=== PATIENT | female | born 1985 | race Caucasian/White ===

== ENCOUNTER 2016-10-06 03:57 | Inpatient (IN) | payer BC ==
[~2016-10-06] VITALS: Ht 160 cm; Wt 72.6 kg
[2016-10-06] MEDS ORDERED: PRENTAB26 PO (04:35)
[2016-10-06 04:36] VITALS: Ht 160 cm; Wt 72.6 kg
[2016-10-06] MEDS ORDERED: LACTATED RINGER'S 1000ML 1,000 ML IV PRN (09:37)
[2016-10-06] MEDS ORDERED: LACTATED RINGER'S 1000ML 1,000 ML IV SCH (09:37)
[2016-10-06 10:32] LABS: HEMATOCRIT 37.8 % (37-47); MEAN CORPUSCULAR HEMOGLOBIN 31.4 pg (25-34); MEAN CORPUSCULAR HGB CONC 34.1 g/dl (32-36); MEAN PLATELET VOLUME 10.5 fL (7.4-10.4); PLATELET COUNT 214 K/uL (130-400); RED BLOOD COUNT 4.11 M/uL (4.2-5.4); WHITE BLOOD COUNT 14.45 K/uL (4.8-10.8)
[2016-10-06] MEDS ORDERED: BUPIVACAINE 0.25% 30 ML VIAL ONE (12:41)
[2016-10-06] MEDS ORDERED: EpHEDrine SULFATE INJ 50 MG/ML AMP ONE (12:41)
[2016-10-06] MEDS ORDERED: FENTANYL 2MCG/ML ROPIV 1.25MG/ML 100ML BAG EPI ONE (12:42)
[2016-10-06] MEDS ORDERED: FENTANYL CITRATE INJ 50 MCG/1 ML 2 ML VIAL ONE (12:42)
[2016-10-06] MEDS ORDERED: LACTATED RINGER'S 1000ML 500 ML IV PRN (13:05)
[2016-10-06] MEDS ORDERED: EpHEDrine SULFATE INJ 50 MG/ML AMP IV PRN (13:15)
[2016-10-06] MEDS ORDERED: NALOXONE HCL INJ 0.4 MG/1 ML VIAL/CARP IV PRN (13:15)
[2016-10-06] MEDS ORDERED: FENTANYL 2MCG/ML ROPIV 1.25MG/ML 100ML BAG EPI PRN (13:15)
[2016-10-06] MEDS ORDERED: OXYTOCIN 30 UNITS/500ML NSS IV ONE (16:00)
[2016-10-06] MEDS ORDERED: MEASLES, MUMPS & RUBELLA VIRUS VIAL SQ. ONE (16:45)
[2016-10-06] MEDS ORDERED: HYDROCORTISONE ACETATE 25 MG SUPP PR PRN (16:45)
[2016-10-06] MEDS ORDERED: SUPERCREAM 0.870 % 15GM JAR EXT PRN (16:45)
[2016-10-06] MEDS ORDERED: OXYCODONE/ACETAMINOPHEN 5-325 TAB PO PRN (16:45)
[2016-10-06] MEDS ORDERED: DIPHTHERIA/TETANUS/PERTUSSIS 0.5 ML SYR/VIAL IM. ONE (16:45)
[2016-10-06] MEDS ORDERED: BENZOCAINE 20% AER SPR 82.5 GM CAN EXT PRN (16:45)
[2016-10-06] MEDS ORDERED: OXYTOCIN 30 UNITS/500ML NSS IV PRN (16:45)
[2016-10-06] MEDS ORDERED: ACETAMINOPHEN 325 MG TAB PO PRN (16:45)
[2016-10-06] MEDS ORDERED: LANOLIN OINT EXT PRN ×2 (16:45)
--- NOTE | 2016-10-06 17:31 | Anesthesia Procedure Note ---
Anesthesia Epidural Removal Nt Date & Time Oct 06, 2016 at 17:30 Vital Signs Pain Intensity: 0.0 Notes Mental Status: alert / awake / arousable, participated in evaluation Nausea / Vomiting: adequately controlled Pain: adequately controlled Airway Patency, RR, SpO2: stable & adequate BP & HR: stable & adequate Hydration State: stable & adequate Neuraxial Anesthesia: was administered Anesthetic Complications: no major complications apparent, pt satisfied with anesthetic care Epidural: removed without complications, with tip intact
--- NOTE | 2016-10-06 18:02 | DELIVERY SUMMARY ---
DATE OF OPERATION: 10/06/2016 DATE OF DELIVERY: 10/06/2016. TIME OF DELIVERY OF BABY: 1605 p.m. TIME OF DELIVERY OF PLACENTA: 1625 p.m. DETAILS OF DELIVERY: The patient was found to be fully dilated and desired to push. She pushed for about half an hour and delivered the head without difficulty. There was a nuchal cord around the neck x1 and shoulders were delivered with minimal traction and the nuchal cord was reduced while delivering the body. Baby was handed off to the mother where mouth and nose were suctioned. Cord was clamped x2 and cut at 1 min. It was a 3-vessel cord. Then baby was handed to the waiting pediatric team. Then the vagina and perineum were checked for lacerations. There were first degree labial lacerations bilaterally and the left one was close to the urethral opening. A Gilbert catheter was placed in the urethra during repair of labial lacerations and they were repaired with 3-0 Vicryl on an SH needle in a running fashion. Excellent hemostasis was achieved. Then, there was a small second degree perineal laceration at the posterior fourchette, which was repaired with 2-0 Vicryl in a running fashion. Excellent hemostasis was achieved. The rest of the vagina was intact. The placenta was found to be in the vagina, delivered spontaneously as intact and complete. Uterus was explored and found to be empty. Lower segment was cleared of all clots and debris. EBL was 200 and fundus was firm. Mother and baby tolerated the procedure well. Baby was a viable male , Apgars 8/9 and weight is 3396 gr. No complications happened and I was present during whole procedure. I attest to the content of the Intraoperative Record and any orders documented therein. Any exceptions are noted below. [facility]
[2016-10-06 19:20] VITALS: BP 106/58; PULSE 90; TEMP 36.9
[2016-10-06] MEDS: DOCUSATE SODIUM 100 MG CAP PO SCH (20:00)
[2016-10-06] MEDS: IBUPROFEN 600 MG TAB PO PRN (21:15)
[2016-10-07] VITALS: BP 109/63; PULSE 63; TEMP 36.7
[2016-10-07] MEDS: IBUPROFEN 600 MG TAB PO PRN ×2 (03:43→09:58)
[2016-10-07 04:30] VITALS: BP 112/64; PULSE 74; TEMP 36.8
[2016-10-07 07:29] LABS: HEMATOCRIT 30.4 % (37-47)
[2016-10-07 08:00] VITALS: BP 112/67; PULSE 54; TEMP 36.5
[2016-10-07] MEDS: FERROUS SULFATE 325 MG TAB PO SCH (08:32)
[2016-10-07] MEDS: PRENATAL VITAMIN TAB PO SCH (08:33)
[2016-10-07] MEDS: DOCUSATE SODIUM 100 MG CAP PO SCH ×2 (08:33→19:50)
--- NOTE | 2016-10-07 10:17 | OB/GYN Progress Note ---
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 Subjective conversation w/ patient, physical exam Ambulation: ambulating normally Voiding: no voiding problems Passing Gas: Yes Diet Tolerance: Regular Diet Lochia: Moderate Feeding Type: Breast Feeding Review of Systems Constitutional: No chills, No fatigue, No fever, No problem reported, No sweats , No weakness, No weight loss Respiratory: No cough, No dyspnea at rest, No dyspnea on exertion, No hemoptysis, No problem reported, No shortness of breath, No sputum, No wheezing Cardiac: No PND, No chest pain, No claudication, No edema, No orthopnea, No palpitations, No problem reported Breast: + breast lump, + breast pain, + change in shape, + nipple discharge, + problem reported, + see HPI Abdomen: No GI bleeding, No constipation, No diarrhea, No nausea, No pain, No problem reported, No vomiting Female : No abnormal vaginal bleeding, No dysuria, No hematuria, No incontinence, No problem reported, No see HPI, No urinary frequency, No vaginal discharge Objective Vital Signs Date Time Temp Pulse Resp B/P Pulse Ox O2 Delivery O2 Flow Rate FiO2 10/07/16 08:00 36.5 54 18 112/67 Room Air 10/07/16 04:30 36.8 74 16 112/64 Room Air 10/07/16 00:00 Room Air 10/07/16 00:00 36.7 63 16 109/63 10/06/16 19:20 36.9 90 16 106/58 10/06/16 19:20 Room Air Physical Exam General Appearance: WELL-APPEARING, WD/WN, NO APPARENT DISTRESS Respiratory/Chest: chest non-tender, lungs clear, normal breath sounds, no respiratory distress, no accessory muscle use Cardiovascular: regular rate, rhythm, no edema, no gallop, no JVD, no murmur Abdomen: normal bowel sounds, non tender, soft, no organomegaly, no pulsatile mass Fundus: Firm Incision Description: Clean, Dry & Intact Extremities: normal range of motion, non-tender, normal inspection, no pedal edema, no calf tenderness Laboratory Results Last 24 Hours Test 10/06/16 10:14 10/07/16 06:40 White Blood Count 14.45 K/uL Red Blood Count 4.11 M/uL Hemoglobin 12.9 g/dL 10.2 g/dL Hematocrit 37.8 % 30.4 % Mean Corpuscular Volume 92.0 fL Mean Corpuscular Hemoglobin 31.4 pg Mean Corpuscular Hemoglobin Concent 34.1 g/dl RDW Standard Deviation 41.8 fL RDW Coefficient of Variation 12.3 % Platelet Count 214 K/uL Mean Platelet Volume 10.5 fL Assessment and Plan Day Number: 1 Continue Routine Care: Anticipate disch tomorrow
[2016-10-07 11:51] VITALS: BP 108/68; PULSE 66; TEMP 36.4; O2SAT 97
[2016-10-07 16:30] VITALS: BP 110/61; PULSE 61; TEMP 36.4
[2016-10-07] MEDS ORDERED: BISACODYL 5 MG TABEC PO SCH (20:00)
[2016-10-07 23:50] VITALS: BP 106/67; PULSE 65; TEMP 36.7; O2SAT 100
[2016-10-08] MEDS: IBUPROFEN 600 MG TAB PO PRN (05:07)
[2016-10-08 06:10] LABS: HEMATOCRIT 31.1 % (37-47); MEAN CELL VOLUME 92.8 fL (80-100); MEAN CORPUSCULAR HGB CONC 33.4 g/dl (32-36); MEAN PLATELET VOLUME 10.7 fL (7.4-10.4); PLATELET COUNT 187 K/uL (130-400); RED BLOOD COUNT 3.35 M/uL (4.2-5.4); WHITE BLOOD COUNT 12.61 K/uL (4.8-10.8)
[2016-10-08] MEDS ORDERED: BISACODYL 10 MG SUPP PR PRN (07:00)
[2016-10-08] MEDS: DOCUSATE SODIUM 100 MG CAP PO SCH (07:55)
[2016-10-08] MEDS: FERROUS SULFATE 325 MG TAB PO SCH (07:56)
[2016-10-08] MEDS: PRENATAL VITAMIN TAB PO SCH (07:56)
[2016-10-08 08:00] VITALS: BP 104/64; PULSE 56; TEMP 36.5
[2016-10-08] MEDS ORDERED: MTR600X PO (10:00)
--- NOTE | 2016-10-08 10:02 | Discharge Instructions ---
Discharge Instructions Date of Service Oct 08, 2016. Admission Reason for Admission: Check Labor Discharge Discharge Diagnosis / Problem: term delivered Discharge Goals Goal(s): Routine recovery after delivery Activity Recommendations Activity Limitations: as noted below Lifting Limitations: no more than 10 pounds Exercise/Sports Limitations: gradually increase as tolerated May Resume Sexual Activity: after follow-up appointment Shower/Bathe: no limitations Driving or Machine Use: resume 3 days after discharge . Instructions / Follow-Up Instructions / Follow-Up ACTIVITY RECOMMENDATIONS: * Gradual return to full activity over the next 2-3 weeks. * No lifting - nothing heavier than baby over the next 2-3 weeks. * Do not engage in vigorous exercise, sexual activity or sports until cleared by your physician. * Do not drive or operate any motorized equipment until cleared by your physician. * You may shower/bathe daily. BREAST CARE: If you are not breast feeding: * Wear a supportive bra 24 hours a day for one to two weeks. * Avoid stimulating your breasts and nipples as much as possible during the first few weeks after delivery. * When taking a shower, have the warm water hit your back, not breasts. * When your breasts feel full, apply ice packs. Usually three to four times a day helps ease the discomfort. * Take a mild pain medication (Tylenol/Motrin) when you are uncomfortable. If breast feeding: * Use breast milk to lubricate nipples. Lansinoh cream may be used for sore nipples. You do not need to remove cream prior to breast feeding. If using a different brand of cream, check the label for directions regarding removal of cream prior to nursing. * Wear a supportive bra. * If having problems with breasts or breast feeding, call a car sales consultant or your health care provider. EPISIOTOMY CARE: After delivery, if you have an episiotomy (stitches), the following steps will ease discomfort and aid healing. * For the first 24 hours after delivery, place ice packs next to your episiotomy to help reduce swelling. * After the first 24 hour-period, sitz baths, either portable or in the tub, are suggested. A shower with a shower arm sprayed over the episiotomy may be comforting. * Rosalee care should be done after each voiding and bowel movement. Squirt warm water from a plastic bottle over the perineum (region of the body between the anus and urinary opening) and pat dry. * Use Dermoplast to ease discomfort. Shake container. [place] directly over the episiotomy. * Place a Tucks on a clean sanitary pad next to your episiotomy. OVER THE COUNTER MEDICATION: * For discomfort or pain, you may use Acetaminophen (Tylenol), Ibuprofen (Advil ), or Naproxen (Aleve) following the package directions. * For constipation you may use Colace following the package directions. SPECIAL CARE INSTRUCTIONS: When you are discharged from the hospital, it is important for you to follow the instructions listed below: * During the first week at home, you should be able to care for yourself and your baby. In addition, the usual light household activities are encouraged. * Limit your activities to the way you feel. Do not try to clean the house or move furniture. Be sensible. * If you actively engage in sports and have done so up until the time of your delivery, you may resume these activities as soon as you feel able. This may take up to one month or even longer. Use good judgment. * Continue to take your vitamins for at least six weeks after the of your baby. * Your diet need not be limited unless you were on a special diet before your delivery. Breast-feeding mothers need around 2500 calories per day and at least 64-80 ounces of fluid per day (8 to 10 glasses). * You should eat foods from the four major food groups. Crash diets or fad diets are to be avoided. Eating lean meats, fresh fruits and vegetables, low-fat dairy products, high fiber foods and a regular exercise program, will help you get back to your pre- weight without putting your health at risk. * Constipation is sometimes a problem after delivery. Take a mild laxative as needed. If breast feeding, Milk of Magnesia is acceptable to use. You may use a suppository or Fleets enema if no episiotomy. * A daily shower or tub bath is suggested. Be sure to thoroughly and gently dry the perineum. * A bloody vaginal discharge will usually continue until around four weeks post . A small amount of bleeding may continue for as long as six weeks. Vaginal discharge changes from the bright red bleeding after delivery to pink then brownish and finally yellowish-pink before becoming white and disappearing. * Bleeding may increase with activity. Your first period may come in 4-8 weeks. If you are breast feeding, your period may be delayed even longer. * Backus (sex) can begin whenever both you and your partner feel comfortable and do not have any form of genital infection. It is recommended that you wait until after your return appointment and discuss with your physician. If you have questions, please talk to your health care practitioner. A condom should be used to prevent infection and . * Foreplay, gentle intercourse and lubrication is very important the first several times to prevent pain. A water-based lubricant such as K-Y jelly or Astroglide may be used. * Tampons may be used six weeks after delivery. * Douching should be avoided for 6 weeks after delivery. * If you have RH negative blood and your baby is RH positive, you will receive RHOGAM by injection prior to discharge. The nurse will give you a card to keep with you that has the date and place that you received RHOGAM after delivery. * During your care, you had a Rubella screen done to check for the presence of rubella antibodies in your blood. If your test was negative, you will receive a Rubella vaccine prior to discharge. This vaccine may cause a fever, soreness at the injection site and flu-like symptoms. If these symptoms persist, notify your health care practitioner. is not advised for three months after a Rubella vaccine. There is a higher chance of having a baby with defects if conceived within three months of getting the vaccine. * If you were discharged 24 hours from delivery or before 48 hours: Visiting nurses will come to your home 48 hours after discharge to assess you and your baby. The visiting nurse will meet with you while you are in the hospital to arrange a time and get directions to your home. * Verbalizes understanding of car seat law as reviewed with patient nursing. * Car Seat hand-out given and reviewed with patient by nursing. * Shaken baby information reviewed with patient by nursing. Call you doctor if: * Heavy bleeding (saturating several pads an hour) or passing clots the size of your fist. * A fever >101 degrees F (38.3 degrees C) on two occasions four hours apart and/or chills. * Unusual pain in the pelvic or vaginal areas. * "Baby Blues" lasting longer than two weeks. If you have any questions or concerns, call your health care practitioner at . FOLLOW-UP VISIT: * Please call the office at to schedule a 6 week examination. It is important you keep this appointment. * It is important for you to make arrangements for either yearly or twice yearly check-ups thereafter. Current Hospital Diet Patient's current hospital diet: Regular OB Diet Discharge Diet Recommended Diet: Regular OB Diet Fluid Restriction: None Pending Studies Studies pending at discharge: no Medical Emergencies . Who to Call and When: Medical Emergencies: If at any time you feel your situation is an emergency, please call 911 immediately. . Non-Emergent Contact Non-Emergency issues call your: Primary Care Provider . . "Provider Documentation" section prepared by Jonathan Thao. . VTE Core Measure Inpt VTE Proph given/why not?: Treatment not indicated
--- NOTE | 2016-10-08 10:03 | OB/GYN Progress Note ---
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 Subjective conversation w/ patient, physical exam Ambulation: ambulating normally Voiding: no voiding problems Passing Gas: Yes Diet Tolerance: Regular Diet Objective Vital Signs Date Time Temp Pulse Resp B/P Pulse Ox O2 Delivery O2 Flow Rate FiO2 10/07/16 23:50 100 Room Air 10/07/16 23:50 36.7 65 18 106/67 100 Room Air 10/07/16 16:30 Room Air 10/07/16 16:30 36.4 61 14 110/61 Room Air 10/07/16 11:51 36.4 66 18 108/68 97 Room Air Physical Exam General Appearance: WELL-APPEARING, NO APPARENT DISTRESS Abdomen: non tender, soft Fundus: Firm Extremities: non-tender, normal inspection, no pedal edema Laboratory Results Last 24 Hours Test 10/08/16 05:28 White Blood Count 12.61 K/uL Red Blood Count 3.35 M/uL Hemoglobin 10.4 g/dL Hematocrit 31.1 % Mean Corpuscular Volume 92.8 fL Mean Corpuscular Hemoglobin 31.0 pg Mean Corpuscular Hemoglobin Concent 33.4 g/dl RDW Standard Deviation 43.6 fL RDW Coefficient of Variation 12.9 % Platelet Count 187 K/uL Mean Platelet Volume 10.7 fL Assessment and Plan Post- Day Number: 2 Continue Routine Care: discharged
[2016-10-08 16:30] VITALS: BP_DIAS 64; PULSE 56; TEMP 36.5
== END 2016-10-08 16:55 | disposition home or self-care (01) | DRG 775 ==
LOC: C.OPB 03:57 → C.LD 03:57 → C.OPB 09:39 → C.LD 09:39 → C.OBG 19:28
PROVIDERS: ADMIT Obstetrics & Gynecology; ATTEND Obstetrics & Gynecology
PROC: 0KQM0ZZ Repair Perineum Muscle, Open Approach (ICD-10-PCS; principal; 2016-10-06)
PROC: 10E0XZZ Delivery of Products of Conception, External Approach (ICD-10-PCS; principal; 2016-10-06)
DX: O69.81X0 Labor and delivery complicated by cord around neck, without compression, not applicable or unspecified (principal); O70.1 Second degree perineal laceration during delivery; Z3A.39 39 weeks gestation of pregnancy; Z37.0 Single live birth

== ENCOUNTER → 2017-06-07 | Outpatient (CLI) | payer BC ==
[~2017-06-07] MED LIST: MTR600X PO; PRENTAB26 PO
[2017-06-07 10:02] LABS: BASO % 0.7 %; BASO ABS # 0.03 K/uL (0-0.2); COMPLETE YES; EOS % 0.4 %; HEMATOCRIT 39.9 % (37-47); IG% 0.2 %; MEAN CELL VOLUME 95.2 fL (80-100); MEAN CORPUSCULAR HEMOGLOBIN 31.7 pg (25-34); MEAN CORPUSCULAR HGB CONC 33.3 g/dl (32-36); MEAN PLATELET VOLUME 10.6 fL (7.4-10.4); MONO % 8.5 %; NEUT % 53.2 %; PLATELET COUNT 235 K/uL (130-400); RED BLOOD COUNT 4.19 M/uL (4.2-5.4); WHITE BLOOD COUNT 4.59 K/uL (4.8-10.8)
[2017-06-07 10:36] LABS: BLOOD UREA NITROGEN 17 mg/dl (7-18); BUN/CREATININE RATIO 24.2 (10-20); CARBON DIOXIDE 28 mmol/L (21-32); CHLORIDE 105 mmol/L (98-107); CREATININE 0.71 mg/dl (0.60-1.20); GLUCOSE 86 mg/dl (70-99); POTASSIUM 4.3 mmol/L (3.5-5.1); SODIUM 137 mmol/L (136-145)
[2017-06-07 10:47] LABS: CHOLESTEROL 137 mg/dl (0-200); CHOLESTEROL/HDL RATIO 2.4; HDL CHOLESTEROL 56 mg/dl; LDL CHOLESTEROL CALCULATED 71 mg/dl; TRIGLYCERIDES 50 mg/dl (0-150); VERY LOW DENSITY LIPOPROT CALC 10 mg/dl
== END | disposition home or self-care (01) ==
LOC: C.LAB1850 09:19
PROVIDERS: ATTEND Nurse Practitioner Adult Health
DX: Z13.220 Encounter for screening for lipoid disorders (principal); Z82.49 Family history of ischemic heart disease and other diseases of the circulatory system; R53.83 Other fatigue; Z83.49 Family history of other endocrine, nutritional and metabolic diseases

== ENCOUNTER 2020-10-15 12:48 | Inpatient (IN) ==
[2020-10-15] MEDS ORDERED: LACTATED RINGER'S 1,000 ML IV ONE (15:46)
[2020-10-15] MEDS ORDERED: LACTATED RINGER'S 1,000 ML IV PRN (17:09)
[2020-10-15] MEDS ORDERED: OXYTOCIN 30 UNITS/500 ML BAG IV PRN ×2 (17:09→19:45)
--- NOTE | 2020-10-15 17:35 | History & Physical Report ---
Date of Service October 15, 2020 Assessment & Plan (1) Irregular uterine contractions: 35 yo at 39 wks, with contractions and cervical change VSS Afebrile FHR reassuring GBS neg Plan to admit, monitor, declined epidural, abticipate (2) Spontaneous rupture of amniotic membranes: History of Present Illness Primary Care Provider: NO PCP Patient is a 35-year-old -0-0-2 at 39 weeks of gestation who presented to labor and delivery around noon for contractions started around 10 AM. Her cervix was 3 cm dilated 50% effaced head was at -3 station and posterior. She ambulated and was rechecked in 2 hours and she was 3 to 4 cm 60% effaced -2. She ambulated another hour and I checked her again her cervix changed to 45 cm 70% head is -2 with a bulging bag, spontaneous rupture of membranes happened during vaginal exam and it was clear. Now she is being admitted for labor. Her has been uncomplicated, GBS is negative. Denies Covid symptoms. Allergies Allergy/AdvReac Type Severity Reaction Status Date / Time No Known Allergies Allergy Unverified 10/06/16 13:22 Home Medications Medication Instructions Recorded Confirmed Type prenat.vits,matt,ois-ompi-xhyen 1 tab PO DAILY 10/15/20 10/15/20 History [ Vitamin] Patient History Medical History Hypothyroidism Social History Smoking Status: Never smoker Hx Alcohol Use: No Hx Substance Use: No Preferred Language: Telugu Communication Ability: Effective Logistics And Planning Manager Required: No Beliefs That Will Affect Care: None marital status: Current Living Situation: Spouse and Family Other Information That Helps Us Care for You: No Feels Safe at Home: Yes Safety Concerns: Feels Safe At This Time Assistive Devices: None OB History FT x2 Review of Systems All systems reviewed & are unremarkable except as noted in HPI & below Physical Exam Constitutional: WD/WN, vitals as above well developed and + acute distress (with contractions only) Genitourinary: OB Exam Monitor Tracing: + external uterine monitor used and + category I Results & Data ([facility]) Vital Signs (Past 12 Hours) Vital Signs Temp Pulse Resp BP 10/15/20 17:04 97 H 118/72 10/15/20 17:01 37.1 C 10/15/20 16:05 20 10/15/20 14:45 18 10/15/20 13:45 10/15/20 13:11 37.2 C 10/15/20 12:59 104 H 107/74
[2020-10-15 17:40] LABS: Hematocrit (blood only) 30.1 % (37-47); Hemoglobin 10.2 g/dL (12.0-16.0); Mean Corpuscular Hemoglobin 28.7 pg (25-34); Mean Corpuscular Hgb Conc 33.9 g/dL (32-36); Mean Corpuscular Volume 84.6 fL (80-100); Mean Platelet Volume 10.3 fL (7.4-10.4); Platelet Count 226 K/uL (130-400); RDW Coefficient of Variation 12.8 % (11.5-14.5); RDW Standard Deviation 39.4 fL (36.4-46.3); Red Blood Count 3.56 M/uL (4.2-5.4); White Blood Count 9.55 K/uL (4.8-10.8)
[2020-10-15] MEDS ORDERED: HYDROCORTISONE ACETATE 25 MG SUPP PR PRN (19:45)
[2020-10-15] MEDS ORDERED: IBUPROFEN 600 MG TAB PO PRN (19:45)
[2020-10-15] MEDS ORDERED: ACETAMINOPHEN 325 MG TAB PO PRN (19:45)
[2020-10-15] MEDS ORDERED: DIPHTHERIA/TETANUS/PERTUSSIS 0.5 ML SYR/VIAL IM ONE (19:45)
[2020-10-15] MEDS ORDERED: BENZOCAINE 20% AER SPR 82.5 GM CAN EXT PRN (19:45)
[2020-10-15] MEDS ORDERED: MEASLES, MUMPS & RUBELLA VIRUS VIAL SQ ONE (19:45)
[2020-10-15] MEDS ORDERED: bisacodyL 10 MG SUPP PR PRN (19:45)
[2020-10-15] MEDS ORDERED: SUPERCREAM 0.870% 15 GM JAR EXT PRN (19:45)
[2020-10-15] MEDS: DOCUSATE SODIUM 100 MG CAP PO SCH (21:13)
--- NOTE | 2020-10-15 23:34 | Delivery Summary ---
DATE OF OPERATION: 10/15/2020 DETAILS OF DELIVERY: The patient was found to be fully dilated and desired to push. She pushed only once and delivered the head without difficulty. Shoulders were delivered with minimal traction. Baby was handed off to the mother where mouth and nose were suctioned. Cord was clamped x2 and cut at 1 minute delay. Then cord blood was obtained. Vagina and perineum were checked for lacerations.No lacerations found, they were intact. The placenta was found to be in the vagina, delivered spontaneously as intact and complete. Uterus was explored, found to be empty. Lower segment was cleared of all clots and debris. EBL was 200 mL. Fundus was firm. Mom and baby tolerated the procedure well. Sponge and instrument count was correct x2. Baby was a viable female infant, Apgars 8/9 and weight is 3575 gr. No complications happened. I was present during whole procedure. I attest to the content of the Intraoperative Record and any orders documented therein. Any exceptions are noted below. [facility]
[2020-10-16 06:42] LABS: Hematocrit (blood only) 27.5 % (37-47); Hemoglobin 9.3 g/dL (12.0-16.0); Mean Corpuscular Hemoglobin 28.3 pg (25-34); Mean Corpuscular Hgb Conc 33.8 g/dL (32-36); Mean Corpuscular Volume 83.6 fL (80-100); Mean Platelet Volume 10.4 fL (7.4-10.4); Platelet Count 234 K/uL (130-400); RDW Standard Deviation 39.6 fL (36.4-46.3); Red Blood Count 3.29 M/uL (4.2-5.4); White Blood Count 9.46 K/uL (4.8-10.8)
[2020-10-16] MEDS ORDERED: FERROUS SULFATE 325 MG TAB PO SCH (08:00)
[2020-10-16] MEDS ORDERED: PRENATAL VITAMIN 1 TAB PO SCH (08:00)
[2020-10-16] MEDS: DOCUSATE SODIUM 100 MG CAP PO SCH (08:24)
--- NOTE | 2020-10-16 08:38 | Obstetrical Progress Note ---
Date of Service October 16, 2020 Assessment & Plan Admission and Anticipated Discharge Date Admission Date: October 15, 2020 Subjective PPD#1 doing well passing gas out of bed tolerating diet planning to go home Physical Exam Constitutional: WD/WN, vitals as above well developed and comfortable abdomen soft and non-tender no edema neg Suzanne's for d/c Results & Data ([facility]) Vital Signs (Past 12 Hours) Vital Signs Temp Pulse Pulse Pulse Resp BP BP 10/16/20 07:45 36.4 C L 63 18 106/70 10/16/20 04:15 36.5 C 64 18 108/72 10/16/20 00:20 37.2 C 81 18 119/73 10/15/20 22:00 37.0 C 88 18 120/73 10/15/20 21:40 97 H 18 112/60 10/15/20 21:25 85 113/63 10/15/20 21:10 99 H 18 120/70 10/15/20 20:55 76 123/73 10/15/20 20:40 69 20 121/73 Pulse Ox 10/16/20 07:45 98 10/16/20 04:15 10/16/20 00:20 10/15/20 22:00 98 10/15/20 21:40 10/15/20 21:25 10/15/20 21:10 10/15/20 20:55 10/15/20 20:40 Laboratory Results Laboratory Results - last 72 hr 10/15/20 10/15/20 10/15/20 17:17 17:17 17:24 WBC 9.55 RBC 3.56 L Hgb 10.2 L Hct 30.1 L MCV 84.6 MCH 28.7 MCHC 33.9 RDW Std Deviation 39.4 RDW Coeff of Kristal 12.8 Plt Count 226 MPV 10.3 COVID-19 [facility] SARS-CoV-2, RNA, NAAT NEGATIVE 10/16/20 05:55 WBC 9.46 RBC 3.29 L Hgb 9.3 L Hct 27.5 L MCV 83.6 MCH 28.3 MCHC 33.8 RDW Std Deviation 39.6 RDW Coeff of Kristal 13.0 Plt Count 234 MPV 10.4 COVID-19 Eval Order SARS-CoV-2, RNA, NAAT
[2020-10-16] MEDS ORDERED: bisacodyL 5 MG TABEC PO SCH (20:00)
== END 2020-10-16 20:35 | disposition home or self-care (01) | DRG 807 ==
LOC: 4S1 12:48 → OPB 12:48 → 4S1 17:10 → 4S2 22:01

== ENCOUNTER 2023-06-03 23:05 | Inpatient (IN) ==
[2023-06-03] MEDS ORDERED: OXYTOCIN 30 UNITS/NSS 30 UNITS/500 ML BAG IV PRN (23:23)
[2023-06-03] MEDS ORDERED: LIDOCAINE 1% LOCAL 20 ML VIAL INFIL PRN (23:23)
[2023-06-03] MEDS ORDERED: LACTATED RINGER'S 1,000 ML IV PRN (23:23)
--- NOTE | 2023-06-04 00:03 | History & Physical Report ---
Date of Service June 04, 2023 Assessment & Plan (1) Spontaneous rupture of amniotic membranes: Plan: 38-year-old -0-0-3 at 40 weeks of gestation presenting today with spontaneous rupture of membranes since 22:30 P.m. last night, Vital signs stable afebrile, heart rate reassuring, GBS negative, Patient has regular contractions every 2 to 3 minutes and desires to ambulate, Plan to admit, monitor, labs, IV fluids and ambulate when head is engaged, augm ent with Pitocin as needed All questions were answered. (2) Hypothyroidism during : Admission and Anticipated Discharge Date Admission Date: June 03, 2023 History of Present Illness Primary Care Provider: Jaskaran Bourne DO Patient is a 38-year-old -0-0-3 at 40 weeks of gestation who started leaking fluids at 22:30 last night. It has been clear. Patient denies abdominal pain but feels mild irregular tightening. Patient denies fever chills, vaginal bleeding, problems with this . Baby has been active and moving. She is taking levothyroxine for hypothyroidism. GBS is negative Allergies Allergy/AdvReac Type Severity Reaction Status Date / Time No Known Allergies Allergy Verified 06/03/23 23:32 Home Medications Medication Instructions Recorded Confirmed Type vits no.124-ferrous fum 1 tab PO DAILY 06/03/23 06/03/23 History 27 mg iron-folic acid 800 mcg tablet ( Vitamin) Patient History Medical History Hypothyroidism Family History Denies family history of Ovarian cancer Prostate cancer Myocardial infarction Breast cancer Colorectal cancer Social History Smoking Status: Never smoker Second Hand Exposure: No; Do You Dip or Chew Tobacco: No; Hx Alcohol Use: Yes Hx Substance Use: No Preferred Language: Argentine Communication Ability: Effective On Site Nurse Required: No Beliefs That Will Affect Care: None marital status: Current Living Situation: Spouse Current Living Situation Comment: 3 children, , and patient's brother 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 I delivered 2 of her babies. 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 Review of Systems as per Subjective / HPI Physical Exam Constitutional: WD/WN, vitals as above well developed, well nourished and comfortable Gastrointestinal (Abdomen): normal bowel sounds, soft, nontender, no hepatosplenomegaly Genitourinary: no vaginal lesions, no adnexal mass normal external appearance OB Exam Abdomen: + vertex Manual OB Exam: + cervical dilation 3 cm, + cervical effacement 30% and + station high OB Exam Monitor Tracing: + external uterine monitor used and + category I Gross leaking, nitrazine positive, Amnisure positive Results & Data Vital Signs (Past 12 Hours) Vital Signs Temp Pulse Resp BP 06/03/23 23:33 36.7 C 75 18 121/80 06/03/23 23:27 75 121/80 (2) Hypothyroidism during Trimester: third trimester Qualified Code(s): O99.283 - Endocrine, nutritional and metabolic diseases complicating , third trimester; E03.9 - Hypothyroidism, unspecified
[2023-06-04 00:04] LABS: Hemoglobin 11.7 g/dl (12.0-16.0); Mean Corpuscular Hemoglobin 29.3 pg (25.0-34.0); Mean Corpuscular Hgb Conc 33.4 g/dL (32.0-36.0); Mean Corpuscular Volume 87.7 fL (80.0-100.0); Mean Platelet Volume 10.7 fL (9.4-12.4); Platelet Count 206 K/uL (130-400); RDW Coefficient of Variation 13.1 % (11.5-14.5); RDW Standard Deviation 41.7 fL (36.4-46.3); Red Blood Count 3.99 M/uL (4.20-5.40); White Blood Count 9.49 K/ul (4.8-10.8)
[2023-06-04] MEDS ORDERED: OXYTOCIN 30 UNITS/NSS 30 UNITS/500 ML BAG IV PRN ×2 (01:59→07:01)
[2023-06-04] MEDS ORDERED: IBUPROFEN 600 MG TAB PO PRN (07:01)
[2023-06-04] MEDS ORDERED: MEASLES, MUMPS & RUBELLA VIRUS VACCINE (MMR) VIAL SQ ONE (07:01)
[2023-06-04] MEDS ORDERED: BENZOCAINE 20% SPRY 85 APPLN/85 GM CAN EXT PRN (07:01)
[2023-06-04] MEDS ORDERED: HYDROCORTISONE ACETATE 25 MG SUPP PR PRN (07:01)
[2023-06-04] MEDS ORDERED: bisacodyL 10 MG SUPP PR PRN (07:01)
[2023-06-04] MEDS ORDERED: ACETAMINOPHEN 325 MG TAB PO PRN (07:01)
[2023-06-04] MEDS ORDERED: DIPHTHERIA/TETANUS/PERTUSSIS Vaccine (Tdap, Age 7+yrs) 0.5mL SYR/VL IM ONE (07:01)
--- NOTE | 2023-06-04 07:06 | Delivery Summary ---
Vaginal Delivery Summary Date of Service June 04, 2023 Vaginal Delivery Summary Patient was found to be fully dilated and desires to push. She pushed once and delivered the head and then shoulders with no traction. There was a nuchal cord and it was reduced. The baby was handed off to the mother. The cord was clampedx2 and cut at 1 minute. Baby was vigorously crying and moving. The vagina and perineum were checked and found to be intact. No lacerations were found. The placenta was delivered spontaneously as intact and complete at. The uterus was explored and found to be empty. EBL was 50 ml. The fundus was firm The baby was a viable female infant, Apgars 8/9, the weight is pending The mother and the baby tolerated the procedure well. No complications happened and I was present during whole procedure.
[2023-06-04] MEDS: DOCUSATE SODIUM 100 MG CAP PO SCH ×2 (10:24→22:24)
[2023-06-04] MEDS: FERROUS SULFATE 325 MG TAB PO SCH (10:24)
[2023-06-04] MEDS: PRENATAL VITAMIN 1 TAB PO SCH (10:24)
--- OUTSIDE RECORDS SUMMARY | 2023-06-04 12:48 | External Medical Summary | Summary of Care ---
Author Name Unknown Organization [facility] Address [address] [address] Phone [phone] Care Team Providers Care Hot Pond Operator Name Role Phone Unavailable Primary Care Provider Unavailabl e Reason for Visit * Reason Onset Date Comments Return Visit Medication Administration 03/18/2023 Flu an d/or Pneumo Inj Encounter Details Date Type Department Care Team Description 03/18/2023 [facility] [address] [place] [address] Alison Coleman CRNP [address] [place] [address] Encounter for supervision of other normal in third trimester*; Other specified hypothyroidism; Multigravida of advanced maternal age in third trimester; Need for prophylactic vaccination with combined jjzwxnnhtj-kgzehzy-bpr tussis (DTP) vaccine; Need for prophylactic vaccination and inoculation against influenza Allergies No known active allergiesdocumented as of this encounter (statuses as of 03/18/2023) Medications Medication Sig Dispensed Refills Start Date End Date Status 1 30-0.975-200 MG Oral Capsule Take 1 Cap by mouth daily. 0 Active Levothyroxine Sodium 50 MCG Oral Tablet (Levoxyl)Indications :Hypothyroidism, unspecified type Take 1 Tablet by mouth in the morning. (at least 30 min prior to breakfast or other meds). 34 Tablet 2 12/21/2022 Active documented as of this encounter (statuses as of 03/18/2023) Active Problems Problem Noted Date Supervision of normal 03/18/20 23 AMA (advanced maternal age) multigravida 35+ 01/20/2023 Hypothyroidism 12/21/2022 Overview: after first . Not on medications. TSH with reflex T4 placed. 12/18/2022: TSH 10/15, T4 1.0. Ask-a-doc to Endocrinology placed with following recommendations: -start patient on levothyroxine 50 mcg daily -recheck TSH and free T4 in 4 weeks to make sure that TSH is at target. If noted to be at target, repeat TFTs once in 3rd trimester and then about 6 weeks after delivery -educate her about proper levothyroxine intake as follows Take levothyroxine in morning, empty stomach and wait 30-60 minutes before you have breakfast or before you take anyother morning medications. Wait 3-4 hours before taking any MV, calcium/iron containing supplements or heart burn medications. If forget to take thyroid medication, next day can take one extra pill to make up for the missed dose. If taking biotin, hold it for 3 days prior to thyroid labs. TSH Results: Lab Results Component Value Date/Time TSH - [facility] 3.51 01/20/2023 10:42 AM TSH - [facility] 4.27 (H) 12/18/2022 11:47 AM TSH - [facility] 3.06 03/07/2021 12:22 PM TSH - [facility] 2.38 03/27/2020 10:17 AM TSH - [facility] 2.01 05/26/2019 11:22 AM TSH - [facility] 1.06 06/10/2018 09:56 AM Estimated Date of Delivery Comme nts Yes 06/04/2023 Based on Ultraso und documented as of this encounter (statuses as of 03/18/2023) Resolved Problems Problem Noted Date Resolved Date AMA (advanced maternal age) multigravida 35+ 12/201903/18/2023 Hypothyroidism affecting 03/27/2020 03/27/2020 Subchorionic hematoma in first trimester 020 04/10/2020 Overview: Resolved 04/10/20 Subclinical hypothyroidism 10/04/201704/29 Overview: Started levoxyl 25mcg daily at 10wks Thyroid peroxidase ab is elevated 5/18/18: TSH 2.67 12/13/17: TSH 2.87 02/15/18, 32w2d: TSH 3.06 03/22/18: TSH 2.94 Assessing TSH every 4-6 weeks until the patient is euthyroid based on TSH: First trimester, 0.1-2.5 mIU/L; Second trimester, 0.2-3.0 mIU/L; Third trimester, 0.3-3.0 mIU/L. After any adjustment of thyroid replacement dosing, recheck TSH 4 weeks later. Once euthyroidism is attained, TSH should be assessed every trimester. Refer to M if dosing adjustment is required after first trimester. Normal in multigravida 09/30/2017 04/29/2018 Overview: Pt goes by "Aspen" Supervision of other normal 04/07/2016 03/18/2023 Overview: Goes by "Abdifatah". 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 08/17/2016 Tdap Vaccine administered per clinic protocol. Pt given VIS(vaccine information sheet) Zenia Álvarez RN documented as of this encounter (statuses as of 03/18/2023) Immunizations Name Administration Dates Next Due Seasonal Influenza, PF, 6 mo ns & Above, IM , (Flulaval) 03/18/2023,03/27/2020 TDAP (age 10 and older)(Boostrix) 03/18/2023,04/2021,08/17/2016 documented as of this encounter Social History Tobacco Use Types Packs/Day Years Used Date Smoking Tobacco: Never Smokeless Tobacco: Never Alcohol Use Standard Drinks/Week Comments No 0 (1 standard drink = 0.6 oz pur e alcohol) social Food Insecurity Answer Date Recorded Within the past 12 months, y ou worried that your food would run out before you got money to buy more. Never true 03/18/2023 Within the past 12 months, t he food you bought just didn't last and you didn't have money to get more. Never true 03/18/2023 Estimated Date of Delivery Comme nts Yes 06/04/2023 Based on Ultraso und Sex Assigned at Date Recorded Female 03/18/2023 2:02 PM E DT Job Start Date Occupation Industry Not on file Not on file Not on file documented as of this encounter Last Filed Vital Signs Vital Sign Reading Time Taken Comments Blood Pressure 108/64 03/18/2023 1:55 PM EDT Pulse - - Temperature - - Respiratory Rate - - Oxygen Saturation - - Inhaled Oxygen Concentration - - Weight 68.6 kg (151 lb 3.2 oz) 03/18/2023 1:55 P M EDT Height 149.9 cm (4' 11") 03/18/2023 1:55 PM EDT Body Mass Index 30.54 03/18/2023 1:55 PM EDT documented in this encounter Progress Notes * ANIL Hodges - 03/18/2023 2:07 PM EDT 28w6d Doing well. Baby is active. Denies regular ctx, leaking, bleeding. Discussed [facility]KC. Increased levoxyl dose in early January; will check TSH today, completing 3rd trimester labs. Accepts Tdap & flu shot. Recommend MFM U/S due to change in medication after 1st trimester; declines, will obtain growth scan locally. MFM f/u if indicated, she is agreeable. 2 week return ANIL Espinoza documented in this encounter Nursing Notes * Claudia Sahu RN - 03/18/2023 2:16 PM EDT Patient here for FLU and TDAP injection. Patient doing well no complaints. Injection given IM as ordered. Patient tolerated well. Patient to follow up as directed. Patient instructed to call if any complications. Patient verbalized understanding of instructions given and her follow up appt for 2 weeks Injection site: Left Deltoid TDAP Right Deltoid FLU Medication Source: Stock supply * Claudia Sahu RN - 03/18/2023 1:56 PM EDT Patient here for Yonny visit 28w6d No concerns Doing glucola today Tdap today Claudia Sahu RN documented in this encounter Plan of Treatment Upcoming Encounters Date Type Specialty Care Team Description 04/01/2023 Imaging Radiology 04/01/2023 Office Visit Gynecology Obstetrics Backer, ANIL Unger [address] [place] [address] Scheduled Orders Name Type Priority Associated Diagnoses Orde r Schedule TSH WITH FREE T4 IF INDICATED Lab Routine Other specified hypothyroidism Expected: 03/18/2023 (Approximate), Expires: 03/18/2024 [facility] FOLLOW-UP EACH FETUS Medical Imaging Routine Other specified hypothyroidism Encounter for supervision of other normal in third trimester Expected: 04/01/2023 (Approximate), Expires: 04/17/2024 Health Maintenance Due Date Last Done Comments Diabetes Screening 1985 COVID-19 Vaccine (#1) 1985 Depression Screening 06/10/2019 06/10/2018 TSH 01/21/2024 01/20/2023, 11/21, 03/07/2021, Additional history exists Pap Smear 12/18/2025 12/18/2022, 05/21, 02/14/2016, Additional history exists Cervical Cancer Screening 12/19/2027 HPV/Co-Test 12/19/2027 12/18/2022 DTaP,Tdap,and Td Vaccines (4 - Td or Tdap) 03/18/2033 03/18/2023, 08/01/2020, 08/17/2016 Influenza Vaccine (FLU shot) Completed 03/18/2023, 03/27/2020 GARDASIL-HPV IMMUNIZATION SERIES Aged Out No longer eligible based on patient's age to complete this topic MENINGOCOCCAL (MENACTRA/MENVEO) Aged Out No longer eligible based on patient's age to complete this topic Pneumococcal Vaccine: Pediatrics (0 to 5 Years) and At-Risk Patients (6 to 64 Years) Aged Out No longer eligible based on patient's age to complete this topic documented as of this encounter Medical Devices Not on filedocumented as of this encounter Visit Diagnoses Diagnosis Encounter for supervision of other normal in third trimester- Primary Other specified hypothyroidism Multigravida of advanced maternal age in third trimester Need for prophylactic vaccination with combined irvmtutfql-gozpojn-usisylmcc (DTP) vaccine Need for prophylactic vaccination and inoculation against influenza documented in this encounter
--- OUTSIDE RECORDS SUMMARY | 2023-06-04 12:48 | External Medical Summary | Summary of Care ---
Author Name Unknown Organization [facility] Address [address] [facility] [place] [address] Phone [phone] Care Team Providers Care Foundry Patternmaker Name Role Phone Unavailable Primary Care Provider Unavailabl e Reason for Visit * Reason Comments Return Visit Encounter Details Date Type Department Care Team Description 04/06/2023 Office Visit [facility]cology[facility] [address] [place] [address] Flori Morgan CRNP [address] [place] [address] Multigravida of advanced maternal age in third trimester*; Other specified hypothyroidism; Encounter for supervision of other normal in third trimester; Breech presentation, single or unspecified fetus Allergies No known active allergiesdocumented as of this encounter (statuses as of 04/06/2023) Medications Medication Sig Dispensed Refills Start Date End Date Status 1 30-0.975-200 MG Oral Capsule Take 1 Cap by mouth daily. 0 Active Levothyroxine Sodium 50 MCG Oral Tablet (Levoxyl)Indications :Hypothyroidism, unspecified type TAKE 1 TABLET BY MOUTH IN THE MORNING ATLEAST 30 MINUTES PRIOR TO BREAKFAST OR OTHER MEDS 30 Tablet 3 04/02/2023 Active documented as of this encounter (statuses as of 04/06/2023) Active Problems Problem Noted Date presentation, breech 04/02/2023 Overview: 31 weeks Supervision of normal 03/18/20 23 AMA (advanced maternal age) multigravida 35+ 01/20/2023 Hypothyroidism 12/21/2022 Overview: after first . Not on medications. TSH with reflex T4 placed. 12/18/2022: TSH 4, T4 1.0. Ask-a-doc to Endocrinology placed with [...] Results Component Value Date/Time TSH - [facility] 1.98 03/18/2023 02:57 PM TSH - [facility] 1.98 03/18/2023 02:57 PM TSH - [facility] 3.51 01/20/2023 10:42 AM TSH - [facility] 2.38 03/27/2020 10:17 AM TSH - [facility] 2.01 05/26/2019 11:22 AM TSH - [facility] 1.06 06/10/2018 09:56 AM Estimated Date of Delivery Comme nts Yes 06/04/2023 Based on Ultraso und documented as of this encounter (statuses as of 04/06/2023) Resolved Problems Problem Noted Date Resolved Date AMA (advanced maternal age) multigravida 35+ 12/201903/18/2023 Hypothyroidism affecting 03/27/2020 03/27/2020 Subchorionic hematoma in first trimester 020 04/10/2020 Overview: Resolved 04/10/20 Subclinical hypothyroidism 10/04/201704/29 Overview: Started levoxyl 25mcg daily at 10wks Thyroid peroxidase ab is elevated 11/05/17: TSH 2.67 12/13/17: TSH 2.87 8/28/18, 32w2d: TSH 3.06 03/22/18: TSH 2.94 Assessing TSH every 4-6 weeks until the patient is euthyroid based on TSH: First trimester, 0.1-2.5 mIU/L; Second trimester, 0.2-3.0 mIU/L; Third trimester, 0.3-3.0 mIU/L. After any adjustment of thyroid replacement dosing, recheck TSH 4 weeks later. Once euthyroidism is attained, TSH should be assessed every trimester. Refer to MFM if dosing adjustment is required after first trimester. Normal in multigravida 09/30/2017 04/29/2018 Overview: Pt goes by "Aspen" Supervision of other normal 04/07/2016 03/18/2023 Overview: Goes by "Storm". 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 08/17/2016 Tdap Vaccine administered per clinic protocol. Pt given VIS(vaccine information sheet) Zenia Álvarez RN documented as of this encounter (statuses as of 04/06/2023) Immunizations Name Administration Dates Next Due SEASONAL INFLUENZA, PF, 6 M & Above, IM , (FLULAVAL or FLUZONE) 03/18/2023,03/27/2020 TDAP (age 10 and older)(Boostrix) 03/18/2023,04/2021,08/17/2016 [...] Sign Reading Time Taken Comments Blood Pressure 96/54 04/06/2023 1:45 PM EDT Pulse - - Temperature - - Respiratory Rate - - Oxygen Saturation - - Inhaled Oxygen Concentration - - Weight 68.9 kg (152 lb) 04/06/2023 1:45 PM EDT Height 160 cm (5' 3") 04/06/2023 1:45 PM EDT Body Mass Index 26.93 04/06/2023 1:45 PM EDT documented in this encounter Progress Notes * ANIL Tena - 04/06/2023 1:52 PM EDT 31w4d Complaints: none Feeling well overall. Good FM. No contractions, bleeding, or LOF. Taking meds as ordered. U/s done, normal growth, breech presentation. ANIL Tena documented in this encounter Nursing Notes * Nicole Washington LPN - 04/06/2023 1:48 PM EDT 31w4d Denies concerns. documented in this encounter Plan of Treatment Upcoming Encounters Date Type Specialty Care Team Description 04/26/2023 Office Visit Gynecology Obstetrics Lisa Bermudez PA-C [address] [place] [address] Health Maintenance Due Date Last Done Comments Diabetes Screening 1985 COVID-19 Vaccine (#1) 1985 Depression Screening 06/10/2019 06/10/2018 TSH 03/18/2024 03/18/2023, 02/20, 01/20/2023, Additional history exists Pap Smear 12/18/2025 12/18/2022, [...] as of this encounter Visit Diagnoses Diagnosis Multigravida of advanced maternal age in third trimester- Primary Other specified hypothyroidism Encounter for supervision of other normal in third trimester Breech presentation, single or unspecified fetus documented in this encounter
--- OUTSIDE RECORDS SUMMARY | 2023-06-04 12:48 | External Medical Summary | Summary of Care ---
Author Name Unknown Organization [facility] Address [address] [facility] [place] [address] Phone [phone] Care Team Providers Care Career Consultant Name Role Phone Unavailable Primary Care Provider Unavailabl e Reason for Visit * Reason Comments Return Visit Encounter Details Date Type Department Care Team (Late st Contact Info) Description 04/26/2023 4:30 PM EST [facility] [address] [place] [address] Lisa Bermudez PA-C [address] [place] [address] Encounter for supervision of other normal in third trimester*; Other specified hypothyroidism; Multigravida of advanced maternal age in third trimester; Breech presentation, single or unspecified fetus Allergies No known active allergiesdocumented as of this encounter (statuses as of 04/26/2023) Medications Medication Sig Dispensed Refills Start Date End Date Status 1 30-0.975-200 MG Oral Capsule Take 1 Cap by mouth daily. 0 Active Levothyroxine Sodium 50 MCG Oral Tablet (Levoxyl)Indications :Hypothyroidism, unspecified type TAKE 1 TABLET BY MOUTH IN THE MORNING ATLEAST 30 MINUTES PRIOR TO BREAKFAST OR OTHER MEDS 30 Tablet 3 04/02/2023 Active documented as of this encounter (statuses as of 04/26/2023) Active Problems Problem Noted Date Diagnosed Date presentation, breech 04/02/2023 Overview: 31 weeks Supervision of normal 03/18/2023 AMA (advanced maternal age) multigravida 35+ 08/ 07/2022 Hypothyroidism 12/21/2022 Overview: after first . 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 08/17/2016 Tdap Vaccine administered per clinic protocol. Pt given VIS(vaccine information sheet) Zenia Álvarez RN documented as of this encounter (statuses as of 04/26/2023) Immunizations Name Administration Dates Next Due SEASONAL INFLUENZA, PF, 6 M & Above, IM , (FLULAVAL or FLUZONE) 03/18/2023,03/27/2020 TDAP (age 10 and older)(Boostrix) 03/18/2023,04/2021,08/17/2016 documented as of this encounter Social History Tobacco Use Types Packs/Day Years Used Date Smoking Tobacco: Never Smokeless Tobacco: Never Alcohol Use Standard Drinks/Week Comments No 0 (1 standard drink = 0.6 oz pur e alcohol) social PHQ-2 Answer Date Recorded PHQ-2 Score 0 06/10/2018 Hunger Vital Sign Answer Date Recorded Within the past 12 months, y ou worried that your food would run out before you got the money to buy more. Never true 03/18/20 23 Within the past 12 months, t he food you bought just didn't last and you didn't have money to get more. Never true 03/18/2023 Hope Depression Scale Answer Date Recorded Hope Depression Scale Total 0 04/26/2023 The thought of harming myself has occurred to me . Never 04/26/2023 Estimated Date of Delivery Comme nts Yes 06/04/2023 Based on Ultraso und Sex and Gender Information Value Date Recorded Sex Assigned at Female 03/18/2023 2:02 PM EDT Gender Identity Female 03/18/2023 2:02 PM EDT Sexual Orientation Straight 03/18/2023 2: 02 PM EDT Job Start Date Occupation Industry Not on file Not on file Not on file documented as of this encounter Last Filed Vital Signs Vital Sign Reading Time Taken Comments Blood Pressure 110/60 04/26/2023 4:24 PM EST Pulse - - Temperature - - Respiratory Rate - - Oxygen Saturation - - Inhaled Oxygen Concentration - - Weight 70.3 kg (155 lb) 04/26/2023 4:24 PM EST Height 160 cm (5' 3") 04/26/2023 4:24 PM EST Body Mass Index 27.46 04/26/2023 4:24 PM EST documented in this encounter Progress Notes * Lisa Bermudez PA-C - 04/26/2023 4:30 PM EST 34w3d Tired, has lingering cough mostly at night due to drainage down back of throat following URI a few weeks ago. Not interested in medication. Reviewed f/u with PCP. Palpates breech again today, will plan ultrasound with next appointment for confirmation and delivery plan moving forward. Reviewed GBS with next visit. Denies bleeding, leaking, contractions. Pos fm. RTC in 2 weeks Lisa Bermudez PA-C * Priscilla Nair LPN - 04/26/2023 4:27 PM EST 34w3d Pt denies any concerns, lingering cough from cold, wondering about safe cough medications. Labor instructions provided. documented in this encounter Plan of Treatment Upcoming Encounters Date Type Department Care Team (Late st Contact Info) Description 05/14/2023 8:30 AM EST Imaging Radiology [facility] [address] [place] [address] 05/14/2023 9:45 AM EST Office Visit Gynecology/Obstetrics [facility] [address] [place] [address] Andrea Nair MD [address] [place] [address] 05/21/2023 11:30 AM EST Office Visit Gynecology/Obstetrics [facility] [address] [place] [address] BackAlison underwood CRNP [address] [place] [address] 05/28/2023 11:30 AM EST Office Visit Gynecology/Obstetrics [facility] [address] [place] [address] Alison Coleman CRNP [address] [place] [address] Scheduled Orders Name Type Priority Associated Diagnoses Orde r Schedule US PREG LIMITED 1 OR MORE FETUSES Medical Imaging Routine Encounter for supervision of other normal in third trimester Breech presentation, single or unspecified fetus Expected: 05/03/2023, Expires: 05/26/2024 Health Maintenance Due Date Last Done Comments [...] of advanced maternal age in third trimester Breech presentation, single or unspecified fetus documented in this encounter
--- OUTSIDE RECORDS SUMMARY | 2023-06-04 12:48 | External Medical Summary ---
Author Name Unknown Address Unknown Organization [id number][place] [place] [address] [place] [id number] Laboratory Report Ordering Provider Test Date Status BELLA ROBERTS 03/18/2023 14:57:17 Final Observation Date Value Abnormality Reference (Units ) Status Iron 03/18/2023 14:57:17 49 33-151 (ug/dL) Final Iron-binding capacity 03/18/2023 14:57:17 450 Above high normal 250-425 (ug/dL) Final Transferrin Sat % 03/18/2023 14:57:17 11 Below low normal 15-55 (%) Final Performing Location [facility] [place] [address] [place] [id number]
--- OUTSIDE RECORDS SUMMARY | 2023-06-04 12:48 | External Medical Summary | Summary of Care ---
Author Name Unknown Organization [facility] Address [address] [facility] [place] [address] Phone [phone] Care Team Providers Care Trucking Contractor Name Role Phone Unavailable Primary Care Provider Unavailabl e Reason for Visit * Reason Comments Return Visit Encounter Details Date Type Department Care Team (Late st Contact Info) Description 05/28/2023 11:30 AM EST Office Visit Gynecology/Obstetric s RojoUnrulygraham Chan [address] [place] [address] BackAlison underwood CRNP [address] [place] [address] Encounter for supervision of other normal in third trimester*; Hypothyroidism, unspecified type; Multigravida of advanced maternal age in third trimester; Breast feeding status of mother Allergies No known active allergiesdocumented as of this encounter (statuses as of 05/28/2023) Medications Medication Sig Dispensed Refills Start Date End Date Status 1 30-0.975-200 MG Oral Capsule Take 1 Cap by mouth daily. 0 Active Levothyroxine Sodium 50 MCG Oral Tablet (Levoxyl)Indications :Hypothyroidism, unspecified type TAKE 1 TABLET BY MOUTH IN THE MORNING ATLEAST 30 MINUTES PRIOR TO BREAKFAST OR OTHER MEDS 30 Tablet 3 04/02/2023 Active Breast PumpIndications:[place] st feeding status of mother Z39.1, [place] 06/04/23 1 Each 0 05/28/2023 Active documented as of this encounter (statuses as of 05/28/2023) Active Problems Problem Noted Date Diagnosed Date Supervision of normal 03/18/2023 AMA (advanced maternal age) multigravida 35+ 07/2022 Hypothyroidism 12/21/2022 Overview: after first . 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 08/17/2016 Tdap Vaccine administered per clinic protocol. Pt given VIS(vaccine information sheet) Zenia Álvarez RN documented as of this encounter (statuses as of 05/28/2023) Immunizations Name Administration Dates Next Due SEASONAL [...] money to get more. Never true 03/18/2023 [place]agoner Depression Scale Answer Date Recorded [place]er Depression Scale Total 0 04/26/2023 The thought [...] Sign Reading Time Taken Comments Blood Pressure 100/58 05/28/2023 11:32 AM EST Pulse - - Temperature - - Respiratory Rate - - Oxygen Saturation - - Inhaled Oxygen Concentration - - Weight 73.5 kg (162 lb) 05/28/2023 11:32 AM EST Height 160 cm (5' 3") 05/28/2023 11:32 AM EST Body Mass Index 28.7 05/28/2023 11:32 AM EST documented in this encounter Progress Notes * Alison Coleman CRNP - 05/28/2023 11:35 AM EST 39w0d Doing well. No regular ctx, leaking/bleeding. Good movement. Declines scheduling an induction, feels baby will be here in the next week. Breast pump rx provided. Has labor instructions. 1 week return ANIL Espinoza * Kathleen Willoughby LPN - 05/28/2023 11:33 AM EST 39w0d Denies any issues documented in this encounter Plan of Treatment Upcoming Encounters Date Type Department Care Team (Late st Contact Info) Description 06/04/2023 2:45 PM EST Office Visit Gynecology/Obstetrics Jeaneth Chan [address] [place] [address] Backer, ANIL Unger [address] [place] [address] Health Maintenance Due Date Last Done Comments [...] of other normal in third trimester- Primary Hypothyroidism, unspecified type Multigravida of advanced maternal age in third trimester Breast feeding status of mother care and examination of lactating mother documented in this encounter
--- OUTSIDE RECORDS SUMMARY | 2023-06-04 12:48 | External Medical Summary ---
Author Name Unknown Address Unknown Organization [id number]:[facility] - [address] [place] [address] Laboratory Report Ordering Provider Test Date Status BELLA ROBERTS 03/18/2023 14:57:17 Final Observation Date Value Abnormality Reference (Units ) Status Ferritin 03/18/2023 14:57:17 10 Below low normal 13- 150 (ng/mL) Final Performing Location [facility] - [address] [place] [address]
--- OUTSIDE RECORDS SUMMARY | 2023-06-04 12:48 | External Medical Summary | Summary of Care ---
Author Name Unknown Organization [facility] Address [address] [place] [address] Phone [phone] Care Team Providers Care Calculation Reviewer Name Role Phone Unavailable Primary Care Provider Unavailabl e Reason for Visit * Reason Comments Return Visit Encounter Details Date Type Department Care Team (Late st Contact Info) Description 05/21/2023 11:30 AM EST Office Visit Gynecology/Obstetric s Jeaneth Chan [address] [place] [address] Alison Coleman CRNP [address] [place] [address] Encounter for supervision of other normal in third trimester*; Other specified hypothyroidism; Multigravida of advanced maternal age in third trimester Allergies No known active allergiesdocumented as of this encounter (statuses as of 05/21/2023) Medications Medication Sig Dispensed Refills Start Date End Date Status 1 30-0.975-200 MG Oral Capsule Take 1 Cap by mouth daily. 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 08/17/2016 Tdap Vaccine administered per clinic protocol. Pt given VIS(vaccine information sheet) Zenia Álvarez RN documented as of this encounter (statuses as of 05/21/2023) Immunizations Name Administration Dates Next Due SEASONAL [...] money to get more. Never true 03/18/2023 Victor Depression Scale Answer Date Recorded Victor Depression Scale Total 0 04/26/2023 The thought [...] Sign Reading Time Taken Comments Blood Pressure 100/60 05/21/2023 11:28 AM EST Pulse - - Temperature - - Respiratory Rate - - Oxygen Saturation - - Inhaled Oxygen Concentration - - Weight 72.1 kg (159 lb) 05/21/2023 11:28 AM EST Height - - Body Mass Index 28.17 05/14/2023 9:16 AM EST documented in this encounter Progress Notes * Alison Coleman CRNP - 05/21/2023 11:29 AM EST 38w0d No concerns. No regular ctx, leaking/bleeding. Good movement. is likely getting a vasectomy; plans for OCP as bridge contraception. Return in 1 week. ANIL Espinoza * Shanae Varela LPN - 05/21/2023 11:28 AM EST 38w0d Denies vaginal bleeding/rom + movement No new concerns documented in this encounter Plan of Treatment Upcoming Encounters Date Type Department Care Team (Late st Contact Info) Description 05/28/2023 11:30 AM EST Office Visit Gynecology/Obstetrics [facility] [address] [place] [address] Backer, ANIL Unger [address] [place] [address] Health Maintenance Due Date Last Done Comments [...] of advanced maternal age in third trimester documented in this encounter
--- OUTSIDE RECORDS SUMMARY | 2023-06-04 12:48 | External Medical Summary | Summary of Care ---
Author Name Unknown Organization [facility] Address [address] [address] Phone [phone] Care Team Providers Care International Organizer Name Role Phone Unavailable Primary Care Provider Unavailabl e Reason for Visit * Reason Comments Return Visit Encounter Details Date Type Department Care Team (Late st Contact Info) Description 05/14/2023 9:45 AM EST Office Visit Gynecology/Obstetric [facility] [address] [place] [address] Andrea Nair MD [address] [place] [address] Other specified hypothyroidism*; Multigravida of advanced maternal age in third trimester Allergies No known active allergiesdocumented as of this encounter (statuses as of 05/14/2023) Medications Medication Sig Dispensed Refills Start Date End Date Status 1 30-0.975-200 MG Oral Capsule Take 1 Cap by mouth daily. 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 08/17/2016 Tdap Vaccine administered per clinic protocol. Pt given VIS(vaccine information sheet) Zenia Álvarez RN documented as of this encounter (statuses as of 05/14/2023) Immunizations Name Administration Dates Next Due SEASONAL [...] money to get more. Never true 03/18/2023 [place] Depression Scale Answer Date Recorded [place] Depression Scale Total 0 04/26/2023 The thought [...] Reading Time Taken Comments Blood Pressure 100/60 05/14/2023 9:16 AM EST Pulse - - Temperature - - Respiratory Rate - - Oxygen Saturation - - Inhaled Oxygen Concentration - - Weight 71.9 kg (158 lb 9.6 oz) 05/14/2023 9:16 A M EST Height 160 cm (5' 3") 05/14/2023 9:16 AM EST Body Mass Index 28.09 05/14/2023 9:16 AM EST documented in this encounter Progress Notes * Andrea Nair MD - 05/14/2023 9:58 AM EST Pt doing well No complaints GBS done Sono done 04/12/23 showed Nml growth breech presentation VT today RTC 1 week * Priscilla Nair LPN - 05/14/2023 9:19 AM EST 37w0d Pt denies any concerns documented in this encounter Plan of Treatment Upcoming Encounters Date Type Department Care Team (Late st Contact Info) Description 05/21/2023 11:30 AM EST Office Visit Gynecology/Obstetrics Jeaneth Chan [address] [place] [address] Alison Coleman CRNP [address] [place] [address] 05/28/2023 11:30 AM EST Office Visit Gynecology/Obstetrics Jeaneth Chan [address] [place] [address] Backer, Alison ANIL Wang [address] [place] [address] Pending Results Name Type Priority Associated Diagnoses Date /Time GROUP B STREP CULTURE/PCR Lab Routine 05/14/2023 11:05 AM EST Health Maintenance Due Date Last Done Comments [...] as of this encounter Visit Diagnoses Diagnosis Other specified hypothyroidism- Primary Multigravida of advanced maternal age in third trimester documented in this encounter
--- OUTSIDE RECORDS SUMMARY | 2023-06-04 12:48 | External Medical Summary ---
Author Name Unknown Address Unknown Organization K01:[facility] - [address] [place] [address] Laboratory Report Ordering Provider Test Date Status BELLA ROBERTS 03/18/2023 14:57:17 Final Observation Date Value Abnormality Reference (Units ) Status Folic Acid 03/18/2023 14:57:17 >20.0 >4.5 (ng/ mL) Final Performing Location [facility] - [address] [place] [address]
--- OUTSIDE RECORDS SUMMARY | 2023-06-04 12:48 | External Medical Summary ---
Author Name Unknown Address Unknown Organization [id number]:[facility]AT[facility] [place] - [address] [facility] [address] Laboratory Report Ordering Provider Test Date Status BELLA ROBERTS 03/18/2023 14:57:17 Final Observation Date Value Abnormality Reference (Units ) Status Treponema pallidum Ab [Presence] in Serum by Immunoassay 03/18/2023 14:57:17 Nonreactive Nonreactive Final No serologic evidence of syp hilis. No additional testing clinicially indicated at this time. Consider repeat testing in 2-4 weeks if acute or primary syphilis is suspected. Performing Location LABORATORY [facility] - [address] [place] [address]
--- OUTSIDE RECORDS SUMMARY | 2023-06-04 12:48 | External Medical Summary | Summary of Care ---
Author Name Unknown Organization [facility] Address [address] [place] [address] Phone [phone] Care Team Providers Care Supervisor Fitting Name Role Phone Unavailable Primary Care Provider Unavailabl e Reason for Visit * Reason Comments Outpatient Testing Encounter Details Date Type Department Care Team Description 03/18/2023 Laboratory Laboratory, [facility] [address] [facility] [place] [address] [facility] [address] [facility] [address] Multigravida of advanced maternal age in second trimester; Other specified hypothyroidism Allergies No known active allergiesdocumented as of [...] TSH with reflex T4 placed. 12/18/2022: TSH 4/27, T4 1.0. 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 [...] on file documented as of this encounter Plan of Treatment Upcoming Encounters Date Type Specialty Care Team Description 04/01/2023 Imaging Radiology 04/01/2023 Office Visit Gynecology Obstetrics Backer, ANIL Unger [address] [place] [address] Pending Results Name Type Priority Associated Diagnoses Date /Time 50-G GESTATIONAL GLUCOSE, 1 HOUR Lab Routine Multigravida of advanced maternal age in second trimester 03/18/2023 2:57 PM EDT CBC WITH WBC DIFFERENTIAL AND ANEMIA REFLEX WORKUP Lab Routine Multigravida of advanced maternal age in second trimester 03/18/2023 2:57 PM EDT SYPHILIS ANTIBODY SCREEN WITH REFLEX TO RPR Lab Routine Multigravida of advanced maternal age in second trimester 03/18/2023 2:57 PM EDT TSH WITH FREE T4 IF INDICATED Lab Routine Other specified hypothyroidism 03/18/2023 2:57 PM EDT ANEMIA CBC Lab Routine Multigravida of advanced maternal age in second trimester 03/18/2023 2:57 PM EDT DIFFERENTIAL, AUTOMATED Lab Routine Multigravida of advanced maternal age in second trimester 03/18/2023 2:57 PM EDT ANEMIA REFLEX CHEMISTRY HOLD Lab Routine Multigravida of advanced maternal age in second trimester 03/18/2023 2:57 PM EDT SYPHILIS ANTIBODY SCREEN Lab Routine Multigravida of advanced maternal age in second trimester 03/18/2023 2:57 PM EDT Health Maintenance Due Date Last Done Comments [...] Diagnosis Multigravida of advanced maternal age in second trimester Other specified hypothyroidism documented in this encounter
--- OUTSIDE RECORDS SUMMARY | 2023-06-04 12:48 | External Medical Summary ---
Author Name Unknown Address Unknown Organization [id number]:[facility] [place] [address] [facility] [address] [facility] [address] Laboratory Report Ordering Provider Test Date Status BRAYDEN YODER 03/18/2023 14:57:17 Final Observation Date Value Abnormality Reference (Units ) Status TSH 03/18/2023 14:57:17 1.98 0.27-4.20 (uIU/mL) Final Performing Location [facility] [place] [address] [facility] [address]
--- OUTSIDE RECORDS SUMMARY | 2023-06-04 12:48 | External Medical Summary ---
Author Name Unknown Address Unknown Organization [id number]:[facility]AT[facility] [place] - [facility] [place] [address] Laboratory Report Ordering Provider Test Date Status ARMANDOBELLA 03/18/2023 14:57:17 Final Observation Date Value Abnormality Reference (Units ) Status Retic, % (auto) 03/18/2023 14:57:17 1.35 0.80-1.90 (%) Final Reticulocytes, Absolute 03/18/2023 14:57:17 49.1 31.3-100.1 (K/uL) Final Reticulocyte fraction, immature 03/18/2023 14:57:17 12.4 2.5-20.6 (%) Final Reticulocyte HGB 03/18/2023 14:57:17 31.7 29.7-37.4 (pg) Final Performing Location LABORATORY [facility] [place] - [address] [place] [address]
--- OUTSIDE RECORDS SUMMARY | 2023-06-04 12:48 | External Medical Summary ---
Author Name Unknown Address Unknown Organization [id number][place] [place] [address] [facility] [place] [address] Laboratory Report Ordering Provider Test Date Status BELLA ROBERTS 03/18/2023 14:57:17 Final Observation Date Value Abnormality Reference (Units ) Status SYNC LEUKOCYTES IN BLOOD BY AUTOMATED COUNT 03/18/2023 14:57:17 7.88 4.00-10.80 (K/uL) Final Segs 03/18/2023 14:57:17 74.8 40.0-75.0 (%) Final Lymphs % 03/18/2023 14:57:17 17.5 Below low normal 18.0-42.0 (%) Final Monos 03/18/2023 14:57:17 6.3 1.0-11.0 (%) Final Eosinophils 03/18/2023 14:57:17 0.4 0.0-6.0 (%) Final Basos 03/18/2023 14:57:17 0.4 0.0-2.0 (%) Final Immature Granulocyte, Percent 03/18/2023 14:57:17 0.6 0.0-2.0 (%) Final Absolute Segs 03/18/2023 14:57:17 5.89 1.80-7.70 (K/uL) Final Lymphs, absolute 03/18/2023 14:57:17 1.38 1.00-4.80 (K/ul) Final Monos, Abs 03/18/2023 14:57:17 0.50 0.00-1.10 (K/uL) Final Eos, Abs 03/18/2023 14:57:17 0.03 0.00-0.70 (K/uL) Final Basos, Abs 03/18/2023 14:57:17 0.03 0.00-0.20 (K/uL) Final Immature Granulocytes, Number 03/18/2023 14:57:17 0.05 0.00-0.20 (K/uL) Final Performing Location [facility] [place] [address] [facility] [address]
--- OUTSIDE RECORDS SUMMARY | 2023-06-04 12:48 | External Medical Summary ---
Author Name Unknown Address Unknown Organization K01:[facility]AT[facility] [place] - [address] [facility] [address] [facility] [address] Laboratory Report Ordering Provider Test Date Status DEEPIKA GAINES 05/14/2023 11:05:05 Final Observation Date Value Abnormality Reference (Units ) Status Streptococcus agalactiae DNA [Presence] in Specimen by SERENITY with probe detection 05/14/2023 11:05:05 Negative Negative Final No Group B Streptococcus det ected by culture-enhanced PCR (amplified probe).
The collection of vaginal/rectal swab specimen combinations (FDA approved specimen type) is optimal for the detection of Group B Streptococcus. Single source collection (vaginal only or rectal only) or alternate specimen sources may lead to false negative results. Performing Location LABORATORY [facility] [place] - [address] [facility] [address]
--- OUTSIDE RECORDS SUMMARY | 2023-06-04 12:48 | External Medical Summary ---
Author Name Unknown Address Unknown Organization [id number]:LAB[facility]ATORY [facility] [place] [address] - [address] [place] [address] Laboratory Report Ordering Provider Test Date Status BELLA ROBERTS 03/18/2023 14:57:17 Final Observation Date Value Abnormality Reference (Units ) Status Glucose [Moles/volume] in Serum or Plasma --1 hour post 50 g glucose PO 03/18/2023 14:57:17 75 70-129 (mg/dL) Final Performing Location LABORATORY [place] [address] - [address] [place] [address]
--- OUTSIDE RECORDS SUMMARY | 2023-06-04 12:49 | External Medical Summary | Summary of Care ---
Author Name Unknown Organization [facility] Address [address] [facility] [address] Phone [phone] Care Team Providers Care Pharmacology Professor Name Role Phone Unavailable Primary Care Provider Unavailabl e Encounter Details Date Type Department Care Team Description 01/22/2023 Telephone Gynecology/Obstetrics Rojograham Chan [address] [place] [address] Flori Morgan CRNP [address] [place] [address] Allergies No known active allergiesdocumented as of this encounter (statuses as of 01/22/2023) Medications Medication Sig Dispensed Refills Start Date [...] as of this encounter (statuses as of 01/22/2023) Active Problems Problem Noted Date AMA (advanced maternal age) multigravida 35+ 01/20/2023 [...] for 3 days prior to thyroid labs. AMA (advanced maternal age) multigravida 35+ 03/27/2020 Overview: Declined FTS Baby Asprin daily recommended Supervision of other normal Overview: Goes by "Storm". Estimated Date of Delivery Comme nts Yes 06/04/2023 Based on Ultraso und documented as of this encounter (statuses as of 01/22/2023) Resolved Problems Problem Noted Date Resolved Date Hypothyroidism affecting 03/27/2020 03/27/2020 Subchorionic hematoma in [...] should be assessed every trimester. Refer to [facility] if dosing adjustment is required after first trimester. 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 08/17/2016 Tdap Vaccine administered per clinic protocol. Pt given VIS(vaccine information sheet) Zenia Álvarez RN documented as of this encounter (statuses as of 01/22/2023) Immunizations Name Administration Dates Next Due Seasonal Influenza, Quadriva lent, No Preserve, 6 Mons & Above, IM 03/27/2020 TDAP (age 10 and older)(Boostrix) 08/01/2020, documented as of this encounter Social History Tobacco Use Types Packs/Day Years Used Date Smoking Tobacco: Never Smokeless Tobacco: Never Alcohol Use Standard Drinks/Week Comments No 0 (1 standard drink = 0.6 oz pur e alcohol) social Estimated Date of Delivery Comme nts Yes 06/04/2023 Based on Ultraso und Sex Assigned at Date Recorded Not on file Job Start Date Occupation Industry Not on file Not on file Not on file documented as of this encounter Miscellaneous Notes * Telephone Encounter - Claudia Sahu RN - 01/22/2023 9:03 AM EDT Attempted to call pt. No answer, LVM to return call. * Telephone Encounter - ANIL Tena - 01/22/2023 7:54 AM EDT Please notify pt that TSH 3.51. though this is in the "normal" range, it is higher than we would like in . Would recommend she take the 50mg of levothyroxine as prescribed. Please verify that she has been taking only 25mcg. documented in this encounter Plan of Treatment Upcoming Encounters Date Type Specialty Care Team Description 02/16/2023 Office Visit Gynecology Obstetrics Flori Morgan CRNP [address] [place] [address] Health Maintenance Due Date Last Done Comments Diabetes Screening 1985 COVID-19 Vaccine (#1) 1985 Depression Screening, Annual for Pts 12 and Over 06/10/2019 06/10/2018 Influenza Vaccine (FLU shot) (#1) 2023 03/27/2020 TSH 01/21/2024 01/20/2023, 11/21, 03/07/2021, Additional history exists Pap Smear 12/18/2025 12/18/2022, 05/21, 02/14/2016, Additional history exists Cervical Cancer Screening 12/19/2027 HPV/Co-Test 12/19/2027 12/18/2022 DTaP,Tdap,and Td Vaccines (3 - Td or Tdap) 08/01/2030 08/01/2020, 08/17/2016 Hepatitis C Screening Completed 12/18/2022 , 12/18/2022, 12/18/2022, Additional history exists GARDASIL-HPV IMMUNIZATION SERIES Aged Out No longer [...]
--- OUTSIDE RECORDS SUMMARY | 2023-06-04 12:49 | External Medical Summary | Summary of Care ---
Author Name Unknown Organization [facility] Address [address] [place] [address] Phone [phone] Care Team Providers Care Office Supervisor Name Role Phone Unavailable Primary Care Provider Unavailabl e Encounter Details Date Type Department Care Team Description 01/22/2023 Orders Only Outcomes Research Department [address] [place] [address] Hailey Montoya CHRA [employer] Other*[id number] Allergies No known active allergiesdocumented as of [...] Supervision of other normal Overview: Goes by "Abdifatah". Estimated Date of Delivery Comme nts Yes [...] should be assessed every trimester. Refer to [facility] if dosing adjustment is required after first trimester. 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
--- OUTSIDE RECORDS SUMMARY | 2023-06-04 12:49 | External Medical Summary | Summary of Care ---
Author Name Unknown Organization [facility] Address [address] [facility] [address] Phone [phone] Care Team Providers Care Mechanic General Operational Test Name Role Phone Unavailable Primary Care Provider Unavailabl e Encounter Details Date Type Department Care Team Description 01/22/2023 Telephone Gynecology/Obstetrics Rojograham Chan [address] [place] [address] Flori Morgan CRNP [address] [place] [...] should be assessed every trimester. Refer to [facility] if dosing adjustment is required after first trimester. 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
--- OUTSIDE RECORDS SUMMARY | 2023-06-04 12:49 | External Medical Summary | Summary of Care ---
Author Name Unknown Organization [facility] Address [address] [facility] [place] [address] Phone [phone] Care Team Providers Care Seasoning Sprayer Name Role Phone Unavailable Primary Care Provider Unavailabl e Encounter Details Date Type Department Care Team Description 12/21/2022 Telephone Gynecology/Obstetrics [facility] [address] [place] [address] Lisa Bermudez PA-C [address] [place] [address] Allergies No known active allergiesdocumented as of this encounter (statuses as of 12/28/2022) Medications Medication Sig Dispensed Refills Start Date [...] as of this encounter (statuses as of 12/28/2022) Active Problems Problem Noted Date Hypothyroidism 12/21/2022 Overview: after first . Not [...] as of this encounter (statuses as of 12/28/2022) Resolved Problems Problem Noted Date Resolved Date [...] should be assessed every trimester. Refer to [facility] if dosing adjustment is required after first trimester. 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 08/17/2016 Tdap Vaccine administered per clinic protocol. Pt given VIS(vaccine information sheet) Zenia Álvarez RN documented as of this encounter (statuses as of 12/28/2022) Immunizations Name Administration Dates Next Due Seasonal [...] Telephone Encounter - Claudia Sahu RN - 12/28/2022 9:29 AM EDT Patient called and made aware. Patient adivsed of message below. Advised that these are the standards of care and recommendations at this time. Advised that further monitoring would be necessary and she needs to establish with a PCP. Advised importance of treating this in . Patient verbalized understanding. * Telephone Encounter - Lisa Bermudez PA-C - 12/28/2022 7:51 AM EDT This is the dose that Endocrinology recommended based on her levels. Do not have any additional recommendations beyond this dose recommended. Treating thyroid issues in is important. She iswelcome to talking with family doctor more regarding treatment as it is again recommend she establish now with them, as OBGYN further management of her thyroid will be deferred to them. * Telephone Encounter - Claudia Sahu RN - 12/25/2022 3:56 PM EDT Patient calling in. Given results. Patient would like to ask if she is able start our at any lower dosages? States that she does not like to take any medication if not necessary. She states she looked back at her previous thyroid levels and she doesn't feel that they are "much different". Patient would like to make sure with Lisa that she feels the medication is necessary before picking up at pharmacy. Please review/advise. Patient aware of all other instructions and verbalized understanding. * Telephone Encounter - Claudia Sahu RN - 12/23/2022 12:54 PM EDT Attempted to call patient. No answer, LVM to return call. * Telephone Encounter - Lisa Bermudez PA-C - 12/21/2022 12:46 PM EDT Sent patient Covarity[employer] message this morning about abnormal thyroid labs. Please let her know Endocrinology recommended starting her on daily medication: Levothyroxine 50 mcg daily. I sent this to pharmacy. We will need to repeat labs in about 4 weeks after starting. She should take first thing in the morning on empty stomach and wait 30-60 minutes before having breakfasting, wait 3-4 hours before taking vitamin, calcium/iron or other heartburn meds if she takes these. If she ever forget thyroid med, she can take one extra pill next day to make up for missed dose. If taking biotin, we need to not take 3 days leading up to repeat labs. If she does not have PCP. She needs to establish now for further med management in . Please let her know. documented in this encounter Plan of Treatment Upcoming Encounters Date Type Specialty Care Team Description 01/20/2023 Imaging Radiology 01/20/2023 Office Visit Gynecology Obstetrics Flori Morgan CRNP [address] [place] [address] Health Maintenance Due Date Last Done Comments Diabetes Screening 1985 COVID-19 Vaccine (#1) 1985 Depression Screening, Annual for Pts 12 and Over 06/10/2019 06/10/2018 Influenza Vaccine (FLU shot) (#1) 2023 03/27/2020 TSH 12/19/2023 12/18/2022, 02/19, 03/27/2020, Additional history exists Pap Smear 12/19/2027 12/18/2022, 05/21, 02/14/2016, Additional history exists DTaP,Tdap,and Td Vaccines (3 - Td or [...] as of this encounter Visit Diagnoses Diagnosis Hypothyroidism, unspecified type- Primary documented in this encounter
--- OUTSIDE RECORDS SUMMARY | 2023-06-04 12:49 | External Medical Summary ---
Author Name Unknown Address Unknown Organization K01:LABORATORY [facility] - [address] [place], [place] [address] [address] Laboratory Report Ordering Provider Test Date Status MAUREEN ROBERTSAIL 03/18/2023 14:57:17 Final Observation Date Value Abnormality Reference (Units ) Status WBC, Total 03/18/2023 14:57:17 7.88 4.00-10.8 0 (K/uL) Final RBC 03/18/2023 14:57:17 3.65 3.85-5.15 (M/uL) Final Hemoglobin 03/18/2023 14:57:17 11.4 Below low normal 12 .0-15.3 (g/dL) Final Anemia reflex testing trigge rs on a HGB < 12.0 for Females and HGB < 13.0 for Males in accordance with the WHO Anemia Guidelines
Anemia reflex testing triggers on a HGB < 12.0 for Females and HGB < 13.0 for Males in accordance with the WHO Anemia Guidelines HCT 03/18/2023 14:57:17 35.6 Below low normal 36. 0-45.2 (%) Final MCV 03/18/2023 14:57:17 97.5 81.5-97.5 (fL) Final MCH 03/18/2023 14:57:17 31.2 27.0-34.0 (pg) Final MCHC 03/18/2023 14:57:17 32.0 32.0-36.0 (g/dL) Final RDW 03/18/2023 14:57:17 11.9 11.5-15.5 (%) Final Platelets 03/18/2023 14:57:17 214 140-400 (K /uL) Final MPV 03/18/2023 14:57:17 10.9 6.6-11.1 ( fL) Final Nucleated erythrocytes/100 leukocytes [Ratio] in Blood by Automated count 03/18/2023 14:57:17 0 <=0 (/100 WBCs) Final Performing Location LABORATORY [facility] - [address] [facility] [address]
--- OUTSIDE RECORDS SUMMARY | 2023-06-04 12:49 | External Medical Summary ---
Author Name Unknown Address Unknown Organization [id number]:[facility] - [address] [place] [address] Laboratory Report Ordering Provider Test Date Status ANJALI NAQVI 12/18/2022 11:47:22 Final Observation Date Value Abnormality Reference (Units ) Status SYNC LEUKOCYTES IN BLOOD BY AUTOMATED COUNT 12/18/2022 11:47:22 8.30 4.00-10.80 (K/uL) Final Segs 12/18/2022 11:47:22 77.0 Above high normal 40.0-75.0 (%) Final Lymphs % 12/18/2022 11:47:22 16.3 Below low normal 18.0-42.0 (%) Final Monos 12/18/2022 11:47:22 6.3 1.0-11.0 (%) Final Eosinophils 12/18/2022 11:47:22 0.2 0.0-6.0 (%) Final Basos 12/18/2022 11:47:22 0.2 0.0-2.0 (%) Final Absolute Segs 12/18/2022 11:47:22 6.39 1.80-7.70 (K/uL) Final Lymphs, absolute 12/18/2022 11:47:22 1.35 1.00-4.80 (K/ul) Final Monos, Abs 12/18/2022 11:47:22 0.52 0.00-1.10 (K/uL) Final Eos, Abs 12/18/2022 11:47:22 0.02 0.00-0.70 (K/uL) Final Basos, Abs 12/18/2022 11:47:22 0.02 0.00-0.20 (K/uL) Final Performing Location [facility] - [address] [place] [address]
--- OUTSIDE RECORDS SUMMARY | 2023-06-04 12:49 | External Medical Summary ---
Author Name Unknown Address Unknown Organization [id number]:[facility] [place] [address] [place] [address] [place] [address] Laboratory Report Ordering Provider Test Date Status ANJALI NAQVI 12/18/2022 11:47:22 Final Observation Date Value Abnormality Reference (Units ) Status Hep B surface Ag 12/18/2022 11:47:22 Negative Neg ative Final Performing Location [facility]ATORY [facility] - [address] [place] [address]
--- OUTSIDE RECORDS SUMMARY | 2023-06-04 12:49 | External Medical Summary | Summary of Care ---
Author Name Unknown Organization [facility] Address [address] [facility] [address] Phone [phone] Care Team Providers Care Medical Officer Name Role Phone Unavailable Primary Care Provider Unavailabl e Reason for Visit * Reason Comments Return Visit Encounter Details Date Type Department Care Team Description 01/20/2023 Office Visit Gynecology/Obstetric s Jeaneth Chan [address] [place] [address] Flori Morgan CRNP [address] [place] [address] Multigravida of advanced maternal age in second trimester*; Other specified hypothyroidism Allergies No known active allergiesdocumented as of this encounter (statuses as of 01/20/2023) Medications Medication Sig Dispensed Refills Start Date [...] as of this encounter (statuses as of 01/20/2023) Active Problems Problem Noted Date AMA (advanced [...] as of this encounter (statuses as of 01/20/2023) Resolved Problems Problem Noted Date Resolved Date [...] normal first 02/14/2016 04/07/2016 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 08/17/2016 Tdap Vaccine administered per clinic protocol. Pt given VIS(vaccine information sheet) Zenia Álvarez RN documented as of this encounter (statuses as of 01/20/2023) Immunizations Name Administration Dates Next Due Seasonal [...] Sign Reading Time Taken Comments Blood Pressure 102/60 01/20/2023 10:18 AM EDT Pulse - - Temperature - - Respiratory Rate - - Oxygen Saturation - - Inhaled Oxygen Concentration - - Weight 64.9 kg (143 lb) 01/20/2023 10:18 AM EDT Height 150 cm (4' 11.06") 01/20/2023 10:18 AM ED T Body Mass Index 28.82 01/20/2023 10:18 AM EDT documented in this encounter Progress Notes * ANIL Tena - 01/20/2023 10:32 AM EDT 20w5d No concerns. Feeling some FM, has anterior placenta. No bleeding. Anatomy u/s today, +cardiac activity seen. Taking 25mcg levothyroxine currently, planning repeat TSH today. ANIL Tena documented in this encounter Nursing Notes * ISAAC Aburto - 01/20/2023 10:23 AM EDT 20w5d Pt denies any concerns. documented in this encounter Plan of Treatment Upcoming Encounters Date Type Specialty Care Team Description 01/20/2023 Laboratory Laboratory Arnoldo Chan [address] [place] [address] [employer] Other*[id number]; Other specified hypothyroidism 02/16/2023 Office Visit Gynecology Obstetrics Flori Morgan CRNP [address] [place] [address] Pending Results Name Type Priority Associated Diagnoses Date /Time TSH WITH FREE T4 IF INDICATED Lab Routine Other specified hypothyroidism 01/20/2023 10:42 AM EDT Scheduled Orders Name Type Priority Associated Diagnoses Orde r Schedule TSH WITH FREE T4 IF INDICATED Lab Routine Other specified hypothyroidism Expected: 01/20/2023 (Approximate), Expires: 01/21/2024 Health Maintenance Due Date Last Done Comments Diabetes Screening 1985 COVID-19 Vaccine (#1) 1985 Depression Screening, Annual for Pts 12 and Over 06/10/2019 06/10/2018 Influenza Vaccine (FLU shot) (#1) 2023 03/27/2020 TSH 12/19/2023 12/18/2022, 02/19, 03/27/2020, Additional history exists Pap Smear 12/18/2025 12/18/2022, [...] Multigravida of advanced maternal age in second trimester- Primary Other specified hypothyroidism [employer] Other*[id number] Other specified hypothyroidism documented in this encounter
--- OUTSIDE RECORDS SUMMARY | 2023-06-04 12:49 | External Medical Summary ---
Author Name Unknown Address Unknown Organization K01:LABORATORY [facility] - [address] [place] [address] Laboratory Report Ordering Provider Test Date Status RADHA UHYNH 01/20/2023 10:42:51 Final Observation Date Value Abnormality Reference (Units ) Status K-[employer]ODE SPECIMEN-LAV 01/20/2023 10:42:51 Freezing of extracted DNA, whole blood and/or serum. Final Performing Location LABORATORY [facility] - [address] [facility] [address]
--- OUTSIDE RECORDS SUMMARY | 2023-06-04 12:49 | External Medical Summary | Summary of Care ---
Author Name Unknown Organization [facility] Address [address] [facility] [place] [address] Phone [phone] Care Team Providers Care Flanger Name Role Phone Unavailable Primary Care Provider Unavailabl e Encounter Details Date Type Department Care Team Description 12/21/2022 Telephone Gynecology/Obstetrics [facility] [address] [place] [address] Lisa Bermudez PA-C [address] [place] [address] Allergies No known active allergiesdocumented as of this encounter (statuses as of 12/23/2022) Medications Medication Sig Dispensed Refills Start Date [...] as of this encounter (statuses as of 12/23/2022) Active Problems Problem Noted Date Hypothyroidism 12/21/2022 [...] as of this encounter (statuses as of 12/23/2022) Resolved Problems Problem Noted Date Resolved Date [...] should be assessed every trimester. Refer to [facility] if dosing adjustment is required after first trimester. 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 08/17/2016 Tdap Vaccine administered per clinic protocol. Pt given VIS(vaccine information sheet) Zenia Álvarez RN documented as of this encounter (statuses as of 12/23/2022) Immunizations Name Administration Dates Next Due Seasonal [...] - 12/21/2022 12:46 PM EDT Sent patient ITYZ message this morning about abnormal thyroid labs. [...] 3 days leading up to repeat labs. Please let her know. documented in this encounter Plan of Treatment Upcoming Encounters Date Type Specialty Care Team Description 01/20/2023 Imaging Radiology 01/20/2023 Office Visit Gynecology Obstetrics Cathy, ANIL Womack [address] [place] [address] Health Maintenance Due Date Last Done Comments Diabetes Screening 1985 COVID-19 Vaccine (#1) 1985 Depression Screening, Annual for Pts 12 and Over 06/10/2019 06/10/2018 Influenza Vaccine (FLU shot) (#1) 2023 03/27/2020 TSH 12/19/2023 12/18/2022, 02/19, 03/27/2020, Additional history exists Pap Smear 06/02/2024 06/02/2019, 01/20, 11/24/2013 DTaP,Tdap,and Td Vaccines (3 - Td or [...]
--- OUTSIDE RECORDS SUMMARY | 2023-06-04 12:49 | External Medical Summary ---
Author Name Unknown Address Unknown Organization K01:LABORATORY [facility] - [address] [facility] [place] [address] Laboratory Report Ordering Provider Test Date Status RADHA HUYNH 01/20/2023 10:42:51 Final Observation Date Value Abnormality Reference (Units ) Status MYCODE SPECIMEN-SST 01/20/2023 10:42:51 Freezing of extracted DNA, whole blood and/or serum. Final Performing Location LABORATORY [facility] - [address] [facility] [address]
--- OUTSIDE RECORDS SUMMARY | 2023-06-04 12:49 | External Medical Summary | Summary of Care ---
Author Name Unknown Organization [facility] Address [address] [facility] [address] Phone [phone] Care Team Providers Care Automotive Welder Name Role Phone Unavailable Primary Care Provider Unavailabl e Reason for Visit * Reason Onset Date Comments Medication Refill 09/02/2022 Encounter Details Date Type Department Care Team Description 09/02/2022 Refill Gynecology/Obstetrics [facility] [address] [place] [address] Armando Morgan CRNP [address] [place] [address] Allergies No known active allergiesdocumented as of this encounter (statuses as of 01/04/2023) Medications Medication Sig Dispensed Refills Start Date End Date Status 1 30-0.975-200 MG Oral Capsule Take 1 Cap by mouth daily. 0 Active Multi-Day Oral Tablet Take 1 Tab by mouth daily. 0 3 Discontinued Blisovi 24 Fe 1-20 MG-MCG(24) Oral Tablet (vwhlogyu-erl-qk h estrad-fe) Take by mouth 1 Tablet in the morning. 84 Tablet 4 08/06/2021 3 Discontinued(Refi ll) Norethindrone 0.35 MG Oral Tablet Take 1 Tablet by mouth in the morning. 28 Tablet 12 08/26/2022 3 Discontinued(Marilou ent preference/discon tinuation) Blisovi 24 Fe 1-20 MG-MCG(24) Oral Tablet (sbqwnrby-caq-mh h estrad-fe) Take 1 Tablet by mouth in the morning. 84 Tablet 4 09/03/2022 3 Discontinued(Medi cation List Clean Up) documented as of this encounter (statuses as of 01/04/2023) Active Problems Problem Noted Date Hypothyroidism 12/21/2022 [...] of other normal Overview: Goes by "Storm". 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 08/17/2016 Tdap Vaccine administered per clinic protocol. Pt given VIS(vaccine information sheet) Zenia Álvarez RN documented as of this encounter (statuses as of 01/04/2023) Immunizations Name Administration Dates Next Due Seasonal Influenza, Quadriva lent, No Preserve, 6 Mons & Above, IM 03/27/2020 TDAP (age 10 and older)(Boostrix) 08/01/2020, documented as of this encounter Social History Tobacco Use Types Packs/Day Years Used Date Smoking Tobacco: Never Smokeless Tobacco: Never Alcohol Use Standard Drinks/Week Comments No 0 (1 standard drink = 0.6 oz pur e alcohol) social Sex Assigned at Date Recorded Not on file Job Start Date Occupation Industry Not on file Not on file Not on file documented as of this encounter Miscellaneous Notes * Telephone Encounter - Claudia Sahu RN - 09/04/2022 1:41 PM EDTSigned Prescriptions: Disp Refills Blisovi 24 Fe 1-20 MG-MCG(24) Oral Tablet *84 Tab*4 Sig: Take 1 Tablet by mouth in the morning. Authorizing Provider: ARMANDO MORGAN * Telephone Encounter - ANIL Tena - 09/03/2022 8:27 AM EDTSigned Prescriptions: Disp Refills Blisovi 24 Fe 1-20 MG-MCG(24) Oral Tablet *84 Tab*4 Sig: Take 1 Tablet by mouth in the morning. Authorizing Provider: ARMANDO MORGAN * Telephone Encounter - Claudia aShu RN - 09/03/2022 8:18 AM EDT Please see patient's my G message r/e refill. States mini pill was refilled by accident, not takingthis. IS the one she is asking for what is pended? * Telephone Encounter - ANIL Tena - 09/02/2022 10:05 AM EDTPending Prescriptions: Disp Refills Blisovi 24 Fe 1-20 MG-MCG(24) Oral Tablet *84 Tab*4 Sig: Take 1 Tablet by mouth in the morning. * Telephone Encounter - ANIL Tena - 09/02/2022 10:03 AM EDT Norethindrone (mini pill) was prescribed 08/26/22. This rx is for Blisovi, which is a combo pill. Canyou find out what exactly the pt is taking?? In addition, pt does not have an annual scheduled. It states she will call back with her schedule, but our appts are out to next calendar year, so certainly she doesn't have a schedule out that far. * Telephone Encounter - Dot Lerner CPhT - 09/02/2022 9:08 AM EDT Pt aware she is due for OV. Pt will call back when aware of her schedule. Did you pend patient's preferred pharmacy and medication before forwarding?yes Pharmacy: [facility] [id number] [place] [address] Pending Prescriptions: Disp Refills Blisovi 24 Fe 1-20 MG-MCG(24) Oral Tablet*84 Tab*4 Sig: Take 1 Tablet by mouth in the morning. Last Visit: 03/07/2021 (in office), 03/15/2020 (telemedicine) Next Visit: Visit date not found If no future appointments scheduled, and last appointment is greater than a year ago, please schedule patient for a follow-up appointment Last date the medication was ordered: 08/06/21 Is this request for a controlled substance?No Urine Drug Screen:No results found for this or any previous visit. Patient Phone Numbers Labs: Lab Results Component Value Date/Time TSH 3.06 03/07/2021 12:22 PM TSH 2.38 03/27/2020 10:17 AM documented in this encounter Plan of Treatment Upcoming Encounters Date Type Specialty Care Team Description 01/20/2023 Imaging Radiology 01/20/2023 Office Visit Gynecology Obstetrics Armando Morgan CRNP [address] [place] [address] Health Maintenance Due Date Last Done Comments [...]
--- OUTSIDE RECORDS SUMMARY | 2023-06-04 12:49 | External Medical Summary ---
Author Name Unknown Address Unknown Organization K01:LABORATORY [facility] [place] - [address] [place] [id number] Laboratory Report Ordering Provider Test Date Status BELLA ROBERTS 02/16/2023 15:10:09 Final Observation Date Value Abnormality Reference (Units) Status Bacteria identified in Specimen by Culture 02/16/2023 15:10:09 No significant growth Final Test: Culture, Urine, Quant itative
Specimen Source: Urine, Clean Catch
Specimen Type: Urine
Specimen Date: 02/16/2023 3:10 PM
Result Date: 02/17/2023 3:50 PM
Result Status: Final result
Resulting Lab: LABORATORY [facility]
[address]
[place] [address]

CULTURE

No significant growth

null Performing Location LABORATORY [facility] [place] - [address] [facility] [address]
--- OUTSIDE RECORDS SUMMARY | 2023-06-04 12:49 | External Medical Summary | Summary of Care ---
Author Name Unknown Organization [facility] Address [address] [address] Phone [phone] Care Team Providers Care Strategic Partnership Manager Name Role Phone Unavailable Primary Care Provider Unavailabl e Reason for Visit * Reason Comments Return Visit Encounter Details Date Type Department Care Team Description 02/16/2023 Office Visit Gynecology/Obstetric s Jeaneth Chan [address] [place] [address] Flori Morgan CRNP [address] [place] [address] Multigravida of advanced maternal age in second trimester*; Other specified hypothyroidism Allergies No known active allergiesdocumented as of this encounter (statuses as of 02/16/2023) Medications Medication Sig Dispensed Refills Start Date [...] as of this encounter (statuses as of 02/16/2023) Active Problems Problem Noted Date AMA (advanced [...] as of this encounter (statuses as of 02/16/2023) Resolved Problems Problem Noted Date Resolved Date [...] 02/14/2016 04/07/2016 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 08/17/2016 Tdap Vaccine administered per clinic protocol. Pt given VIS(vaccine information sheet) Zenia Álvarez RN documented as of this encounter (statuses as of 02/16/2023) Immunizations Name Administration Dates Next Due Seasonal Influenza, PF, 6 mo ns & Above, IM , (Flulaval) 03/27/2020 TDAP (age 10 and older)(Boostrix) 08/01/2020, [...] Reading Time Taken Comments Blood Pressure 100/60 02/16/2023 1:38 PM EDT Pulse - - Temperature - - Respiratory Rate - - Oxygen Saturation - - Inhaled Oxygen Concentration - - Weight 65.6 kg (144 lb 9.6 oz) 02/16/2023 1:38 P M EDT Height 150 cm (4' 11.06") 02/16/2023 1:38 PM EDT Body Mass Index 29.15 02/16/2023 1:38 PM EDT documented in this encounter Progress Notes * ANIL Tena - 02/16/2023 2:04 PM EDT 24w4d Complaints: none Feeling well. Good FM. No contractions, bleeding, or LOF. Glucola with next visit. ANIL Tena * Priscilla Nair LPN - 02/16/2023 1:43 PM EDT 24w4d Pt denies any concerns, 28wk packet given. documented in this encounter Plan of Treatment Upcoming Encounters Date Type Specialty Care Team Description 03/18/2023 Laboratory [facility] [address] [facility] [place] [address] 03/18/2023 Office Visit Gynecology Obstetrics Backer, ANIL Unger [address] [place] [address] Scheduled Orders Name Type Priority Associated Diagnoses Orde r Schedule 50-G GESTATIONAL GLUCOSE, 1 HOUR Lab Routine Multigravida of advanced maternal age in second trimester Expected: 03/19/2023 (Approximate), Expires: 02/17/2024 CBC WITH WBC DIFFERENTIAL AND ANEMIA REFLEX WORKUP Lab Routine Multigravida of advanced maternal age in second trimester Expected: 03/19/2023 (Approximate), Expires: 02/17/2024 SYPHILIS ANTIBODY SCREEN WITH REFLEX TO RPR Lab Routine Multigravida of advanced maternal age in second trimester Expected: 03/19/2023 (Approximate), Expires: 02/17/2024 CULTURE, URINE, QUANTITATIVE Lab Routine Multigravida of advanced maternal age in second trimester Ordered: 02/16/2023 Health Maintenance Due Date Last Done Comments [...] in second trimester- Primary Other specified hypothyroidism documented in this encounter
--- OUTSIDE RECORDS SUMMARY | 2023-06-04 12:49 | External Medical Summary | Summary of Care ---
Author Name Unknown Organization [facility] Address [address] [place] [address] Phone [phone] Care Team Providers Care General Utility Worker Name Role Phone Unavailable Primary Care Provider Unavailabl e Reason for Visit * Reason Comments Initial Visit Encounter Details Date Type Department Care Team Description 12/18/2022 [facility] [address] [place] [address] Lisa Bermudez PA-C [address] [place] [address] Supervision of high-risk , unspecified trimester*; Multigravida of advanced maternal age in second trimester; Hypothyroidism, unspecified type; Medication exposure during first trimester of ; Encounter for supervision of other normal in second trimester Allergies No known active allergiesdocumented as of this encounter (statuses as of 12/18/2022) Medications Medication Sig Dispensed Refills Start Date End Date Status 1 30-0.975-200 MG Oral Capsule Take 1 Cap by mouth daily. 0 Active Multi-Day Oral Tablet Take 1 Tab by mouth daily. 0 12/18/2022 Discontinued documented as of this encounter (statuses as of 12/18/2022) Active Problems Problem Noted Date AMA (advanced maternal age) multigravida 35+ 03/27/2020 Overview: Declined FTS Baby Asprin daily recommended Supervision of other normal Overview: Goes by "Storm". Estimated Date of Delivery Comme nts Yes 06/04/2023 Based on Ultraso und documented as of this encounter (statuses as of 12/18/2022) Resolved Problems Problem Noted Date Resolved Date [...] should be assessed every trimester. Refer to [facility] if dosing adjustment is required after first trimester. 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 08/17/2016 Tdap Vaccine administered per clinic protocol. Pt given VIS(vaccine information sheet) Zenia Álvarez RN documented as of this encounter (statuses as of 12/18/2022) Immunizations Name Administration Dates Next Due Seasonal [...] Sign Reading Time Taken Comments Blood Pressure 106/72 12/18/2022 10:54 AM EDT Pulse - - Temperature - - Respiratory Rate - - Oxygen Saturation - - Inhaled Oxygen Concentration - - Weight 61.8 kg (136 lb 3.2 oz) 12/18/2022 10:54 AM EDT Height 150 cm (4' 11.06") 12/18/2022 10:54 AM ED T Body Mass Index 27.45 12/18/2022 10:54 AM EDT documented in this encounter Progress Notes * Lisa Bermudez PA-C - 12/18/2022 11:21 AM EDT Chief Complaint: Yoly Matthews is a 37 year old here for a new visit. No LMP recorded (lmp unknown). Patient is . History of Present Illness: Patient is not certain about LMP. Dating and viability ultrasound completed 12/18/2022 indicating 16weeks 0 days. Patient admits was not aware she was until positive test 3 weeks ago. Previous pregnancies and previous obstetric history: Denies any complications in previous apart from AMA in last . OB History Para Term AB Living 5 3 3 1 3 SAB IAB Ectopic Multiple Live Births 0 3 # Outcome Date GA Lbr Radu/2nd Weight Sex Delivery Anes PTL Lv 5 Current 4 Term 10/15/20 39w0d 3.575 kg (7 lb 14.1 oz) F Vag-Spont N NITHYA 3 Term 04/29/18 39w5d 3.433 kg (7 lb 9.1 oz) M Vag-Spont None N NITHYA Comments: first degree periurethral laceration 2 Term 10/06/16 39w4d 3.402 kg (7 lb 8 oz) M Vag-Spont EPI N NITHYA Complications: Second degree perineal laceration 1 AB 2004 6w0d AB, [place], 1 Current symptoms of include: Denies vaginal bleeding, leaking of fluid, contractions. She is feeling movement. She is feeling good about this . Social support good. Medication exposure during : Reports taking her OCP until she had positive test 3 weeks ago. She is also concerned as she wasn't taking vitamin until KOP. Current Medications: Current Outpatient Medications Medication Sig Dispense Refill 1 30-0.975-200 MG Oral Capsule Take 1 Cap by mouth daily. Multi-Day Oral Tablet Take 1 Tab by mouth daily. No current facility-administered medications for this visit. Medical History: - BMI: 25.20 - Hypothyroidism was after first delivery. Has not been on medications in some time. Past Medical History: Diagnosis Date Hypothyroid Surgical History: Past Surgical History: Procedure Laterality Date NONE Family History: Denies significant personal or family history. Social History: Patient denies tobacco or illicit drug use. She denies alcohol use. delivery/labor: no History of : no Her last pap was 05/2019 and normal. Due for pap today. Outpatient Medications Marked as Taking for the 12/18/22 encounter (Office Visit) with Lisa Bermudez PA-C Medication Sig Multi-Day Oral Tablet Take 1 Tab by mouth daily. 1 30-0.975-200 MG Oral Capsule Take 1 Cap by mouth daily. Review of patient's allergies indicates: No Known Allergies Physical Exam: BP 106/72 | Ht 1.5 m (4' 11.06") | Wt 61.8 kg (136 lb 3.2 oz) | LMP (LMP Unknown) | BMI 27.45 kg/m | BSA 1.6 m See flow sheet Female crown attacher: Andree Washington LPN present in the room during the exam. + FHT by ultrasound today at 135 bpm Assessment and Plan: Supervision of high-risk , unspecified trimester (Primary) Initial OB labs ordered today. Pelvic ultrasound for dating and confirmation of intrauterine completed today. Discussed genetic testing options with patient. Patient is uncertain if she'd like to do NIPT. She will notify office if she desires to complete. She did want screening for ONTD with MSAFP today given lack of /folic acid until 3 weeks ago with prenatals. Counseled patient that Tylenol is safe, but Ibuprofen or Motrin is not safe in . Advised calling the office before starting any new medications. Advised patient not to change the cat litter box. Encouraged patient to read booklet provided to patient. Made sure that patient has the triage card with phone numbers to reach OB providers. Advised patient to continue vitamin. Advised patient to get her influenza vaccine and COVID-19 vaccine. - MATERNAL SERUM AFP - US PREG SINGLE/1ST GEST, 14 WEEKS OR LATER; Future; Expected date: 01/08/2023 Multigravida of advanced maternal age in second trimester Counseled on this diagnosis. Recommended MFM referral, patient declining at this time. May considerin the future and will notify office. - RUBELLA IGG ANTIBODY; Future; Expected date: 12/18/2022 - HEPATITIS B SURFACE ANTIGEN; Future; Expected date: 12/18/2022 - HIV ANTIGEN & ANTIBODY SCREEN W/ CONFIRMATION; Future; Expected date: 12/18/2022 - CHLAMYDIA TRACHOMATIS AND NEISSERIA GONORRHOEAE, AMPLIFIED PROBE - CBC WITH WBC DIFFERENTIAL AND ANEMIA REFLEX WORKUP; Future; Expected date: 12/18/2022 - HEPATITIS C ANTIBODY SCREEN WITH PROGRESSION TO HEPATITIS C RNA QUANTITATIVE; Future; Expected date: 12/18/2022 - TYPE AND SCREEN; Future; Expected date: 12/18/2022 - SYPHILIS ANTIBODY SCREEN WITH REFLEX TO RPR; Future; Expected date: 12/18/2022 - COAL AND ASH SUPERVISOR PAP SCREEN - MATERNAL SERUM AFP - US PREG SINGLE/1ST GEST, 14 WEEKS OR LATER; Future; Expected date: 01/08/2023 Hypothyroidism, unspecified type Reports after first delivery. No issues since. Not on medication. - TSH WITH FREE T4 IF INDICATED; Future; Expected date: 12/18/2022 Medication exposure during first trimester of Taking OCP until KOP about 3 weeks ago. Pt currently 16 weeks . Counseled on MFM referral given this and AMA, patient declines at this time. She will notify officeif she desires in future. Encounter for supervision of other normal in second trimester - US PREG SINGLE/1ST GEST, 14 WEEKS OR LATER; Future; Expected date: 01/08/2023 Advised patient to go to ER if she has any vaginal bleeding, lower abdominal pain, dizziness, shortness of breath, chest pain, or any other unusual symptoms. Patient verbalized understanding. Follow Up: Return in about 4 weeks (around 01/15/2023), or if symptoms worsen or fail to improve, for Clinic Visit. | For: Clinic Visit | Check-out note: Anatomy with next appt Please arrive at lab Lisa Bermudez PA-C documented in this encounter Nursing Notes * Nicole Washington LPN - 12/18/2022 11:16 AM EDT 16w0d documented in this encounter Plan of Treatment Upcoming Encounters Date Type Specialty Care Team Description 01/20/2023 Imaging Radiology 01/20/2023 Office Visit Gynecology Obstetrics Cathy, ANIL Womack [address] [place] [address] Pending Results Name Type Priority Associated Diagnoses Date /Time RUBELLA IGG ANTIBODY Lab Routine Multigravida of advanced maternal age in second trimester 12/18/2022 11:47 AM EDT HEPATITIS B SURFACE ANTIGEN Lab Routine Multigravida of advanced maternal age in second trimester 12/18/2022 11:47 AM EDT HIV ANTIGEN & ANTIBODY SCREEN W/ CONFIRMATION Lab Routine Multigravida of advanced maternal age in second trimester 12/18/2022 11:47 AM EDT CHLAMYDIA TRACHOMATIS AND NEISSERIA GONORRHOEAE, AMPLIFIED PROBE Lab Routine Multigravida of advanced maternal age in second trimester 12/18/2022 11:38 AM EDT CBC WITH WBC DIFFERENTIAL AND ANEMIA REFLEX WORKUP Lab Routine Multigravida of advanced maternal age in second trimester 12/18/2022 11:47 AM EDT HEPATITIS C ANTIBODY SCREEN WITH PROGRESSION TO HEPATITIS C RNA QUANTITATIVE Lab Routine Multigravida of advanced maternal age in second trimester 12/18/2022 11:47 AM EDT TYPE AND SCREEN Lab Routine Multigravida of advanced maternal age in second trimester 12/18/2022 11:47 AM EDT SYPHILIS ANTIBODY SCREEN WITH REFLEX TO RPR Lab Routine Multigravida of advanced maternal age in second trimester 12/18/2022 11:47 AM EDT COAL AND ASH SUPERVISOR PAP SCREEN Pathology Routine Multigravida of advanced maternal age in second trimester 12/18/2022 11:38 AM EDT TSH WITH FREE T4 IF INDICATED Lab Routine Hypothyroidism, unspecified type 12/18/2022 11:47 AM EDT MATERNAL SERUM AFP Lab Routine Multigravida of advanced maternal age in second trimester Supervision of high-risk , unspecified trimester 12/18/2022 11:47 AM EDT Scheduled Orders Name Type Priority Associated Diagnoses Orde r Schedule RUBELLA IGG ANTIBODY Lab Routine Multigravida of advanced maternal age in second trimester Expected: 12/18/2022 (Approximate), Expires: 12/19/2023 HEPATITIS B SURFACE ANTIGEN Lab Routine Multigravida of advanced maternal age in second trimester Expected: 12/18/2022 (Approximate), Expires: 12/19/2023 HIV ANTIGEN & ANTIBODY SCREEN W/ CONFIRMATION Lab Routine Multigravida of advanced maternal age in second trimester Expected: 12/18/2022 (Approximate), Expires: 12/19/2023 CBC WITH WBC DIFFERENTIAL AND ANEMIA REFLEX WORKUP Lab Routine Multigravida of advanced maternal age in second trimester Expected: 12/18/2022 (Approximate), Expires: 12/19/2023 HEPATITIS C ANTIBODY SCREEN WITH PROGRESSION TO HEPATITIS C RNA QUANTITATIVE Lab Routine Multigravida of advanced maternal age in second trimester Expected: 12/18/2022 (Approximate), Expires: 12/19/2023 TYPE AND SCREEN Lab Routine Multigravida of advanced maternal age in second trimester Expected: 12/18/2022 (Approximate), Expires: 2024 SYPHILIS ANTIBODY SCREEN WITH REFLEX TO RPR Lab Routine Multigravida of advanced maternal age in second trimester Expected: 12/18/2022 (Approximate), Expires: 12/19/2023 TSH WITH FREE T4 IF INDICATED Lab Routine Hypothyroidism, unspecified type Expected: 12/18/2022, Expires: 12/19/2023 US PREG SINGLE/1ST GEST, 14 WEEKS OR LATER Medical Imaging Routine Multigravida of advanced maternal age in second trimester Supervision of high-risk , unspecified trimester Encounter for supervision of other normal in second trimester Expected: 01/08/2023, Expires: 2024 Health Maintenance Due Date Last Done Comments Diabetes Screening 1984 COVID-19 Vaccine (#1) 1984 Depression Screening, Annual for Pts 12 and Over 06/10/2019 06/10/2018 Influenza Vaccine (FLU shot) (Season Ended) 2023 03/27/2020 Pap Smear 06/02/2024 06/02/2019, 02/14/2016, 11/24/2013 DTaP,Tdap,and Td Vaccines (3 - Td or Tdap) 08/01/2030 08/01/2020, 08/17/2016 Hepatitis C Screening Completed 11/24/2013 GARDASIL-HPV IMMUNIZATION SERIES Aged Out No longer eligible b ased on patient's age to complete this topic MENINGOCOCCAL (MENACTRA/MENVEO) Aged Out No longer eligible b ased on patient's age to complete this topic Pneumococcal Vaccine: Pediatrics (0 to 5 Years) and At-Risk Patients (6 to 64 Years) Aged Out No longer eligible b ased on patient's age to complete this topic documented as of this encounter Medical Devices Not on filedocumented as of this encounter Visit Diagnoses Diagnosis Supervision of high-risk , unspecified trimester- Primary Multigravida of advanced maternal age in second trimester Hypothyroidism, unspecified type Medication exposure during first trimester of Supervision of other high-risk Encounter for supervision of other normal in second trimester documented in this encounter
--- OUTSIDE RECORDS SUMMARY | 2023-06-04 12:49 | External Medical Summary | Summary of Care ---
Author Name Unknown Organization [facility] Address [address] [facility] [place] [address] Phone [phone] Care Team Providers Care Construction Job Cost Estimator Name Role Phone Unavailable Primary Care Provider Unavailabl e Encounter Details Date Type Department Care Team Description 12/21/2022 Telephone Gynecology/Obstetrics 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 08/17/2016 Tdap Vaccine administered per clinic protocol. Pt given VIS(vaccine information sheet) Zenia Álvarez RN documented as of this encounter (statuses as of 12/25/2022) Immunizations Name Administration Dates Next Due Seasonal [...] - 12/21/2022 12:46 PM EDT Sent patient [employer] message this morning about abnormal thyroid labs. [...] ANIL Womack [address] [place] [address] Health Maintenance Due Date Last Done Comments [...]
--- OUTSIDE RECORDS SUMMARY | 2023-06-04 12:49 | External Medical Summary | Summary of Care ---
Author Name Unknown Organization [facility] Address [address] [facility] [place] [address] Phone [phone] Care Team Providers Care Stone Fabricator Name Role Phone Unavailable Primary Care Provider Unavailabl e Encounter Details Date Type Department Care Team Description 12/21/2022 Telephone Gynecology/Obstetrics [facility] [address] [place] [address] Lisa Bermudez PA-C [address] [place] [address] Allergies No known active allergiesdocumented as of this encounter (statuses as of 12/24/2022) Medications Medication Sig Dispensed Refills Start Date [...] as of this encounter (statuses as of 12/24/2022) Active Problems Problem Noted Date Hypothyroidism 12/21/2022 [...] as of this encounter (statuses as of 12/24/2022) Resolved Problems Problem Noted Date Resolved Date [...] should be assessed every trimester. [facility] if dosing adjustment is required after first trimester. 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 08/17/2016 Tdap Vaccine administered per clinic protocol. Pt given VIS(vaccine information sheet) Zenia Álvarez RN documented as of this encounter (statuses as of 12/24/2022) Immunizations Name Administration Dates Next Due Seasonal [...] - 12/21/2022 12:46 PM EDT Sent patient [employer] message this morning about abnormal thyroid labs. [...] ANIL Womack [address] [place] [address] Health Maintenance Due Date Last Done Comments [...]
--- OUTSIDE RECORDS SUMMARY | 2023-06-04 12:49 | External Medical Summary ---
Author Name Unknown Address Unknown Organization K01:LABORATORY [facility] - [address] [place] [address] Laboratory Report Ordering Provider Test Date Status ANJALI NAQVI 12/18/2022 11:47:22 Final Observation Date Value Abnormality Reference (Units ) Status Rubella virus IgG Ab [Presence] in Serum 12/18/2022 11:47:22 Positive Abnormal Negative Final A positive result is consist ent with having had rubella virus or vaccination. Performing Location LABORATORY [facility] - [address] [place] [id number]
--- OUTSIDE RECORDS SUMMARY | 2023-06-04 12:49 | External Medical Summary ---
Author Name Unknown Address Unknown Organization K01:LABORATORY [facility] - [address] [place] [address] [place] [address] Laboratory Report Ordering Provider Test Date Status BELLA ROBERTS 01/20/2023 10:42:51 Final Observation Date Value Abnormality Reference (Units ) Status TSH 01/20/2023 10:42:51 3.51 0.27-4.20 (uIU/mL) Final Performing Location LAB[facility]ATORY [facility] - [address] [facility] [address]
--- OUTSIDE RECORDS SUMMARY | 2023-06-04 12:49 | External Medical Summary | Summary of Care ---
Author Name Unknown Organization [facility] Address [address] [place] [facility] [place] [place] [address] Phone [phone] Care Team Providers Care Filter Tip Inspector Name Role Phone Unavailable Primary Care Provider Unavailabl e Reason for Visit * Reason Comments Outpatient Testing Encounter Details Date Type Department Care Team Description 12/18/2022 Laboratory Laboratory, [facility] [address] [facility] [place] [address] [facility] [address] [facility] [address] Multigravida of advanced maternal age in second trimester; Hypothyroidism, unspecified type Allergies No known active allergiesdocumented as of this encounter (statuses as of 12/18/2022) Medications Medication Sig Dispensed Refills Start Date End Date Status 1 30-0.975-200 MG Oral Capsule Take 1 Cap by mouth daily. 0 Active Multi-Day Oral Tablet Take 1 Tab by mouth daily. 0 Active documented as of this encounter (statuses [...] should be assessed every trimester. Refer to [facility] if dosing adjustment is required after first trimester. 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 [...] Morgan CRNP [address] [place] [address] Pending Results Name Type Priority Associated Diagnoses [...] in second trimester 12/18/2022 11:47 AM EDT CBC WITH WBC DIFFERENTIAL AND [...] in second trimester 12/18/2022 11:47 AM EDT TSH WITH FREE T4 IF INDICATED Lab Routine Hypothyroidism, unspecified type 12/18/2022 11:47 AM EDT ANEMIA CBC Lab Routine Multigravida of advanced maternal age in second trimester 12/18/2022 11:47 AM EDT DIFFERENTIAL, AUTOMATED Lab Routine Multigravida of advanced maternal age in second trimester 12/18/2022 11:47 AM EDT ANEMIA REFLEX CHEMISTRY HOLD Lab Routine Multigravida of advanced maternal age in second trimester 12/18/2022 11:47 AM EDT HEPATITIS C ANTIBODY Lab Routine Multigravida of advanced maternal age in second trimester 12/18/2022 11:47 AM EDT HEPATITIS C RNA ADD ON Lab Routine Multigravida of advanced maternal age in second trimester 12/18/2022 11:47 AM EDT SYPHILIS ANTIBODY SCREEN Lab Routine Multigravida of advanced maternal age in second trimester 12/18/2022 11:47 AM EDT Health Maintenance Due Date Last Done [...] age in second trimester Hypothyroidism, unspecified type documented in this encounter
--- OUTSIDE RECORDS SUMMARY | 2023-06-04 12:49 | External Medical Summary | Summary of Care ---
Author Name Unknown Organization [facility] Address [address] [place] [address] Phone [phone] Care Team Providers Care Pharmacist In Charge Name Role Phone Unavailable Primary Care Provider Unavailabl e Reason for Visit * Reason Comments Outpatient Testing Encounter Details Date Type Department Care Team Description 01/20/2023 Laboratory Laboratory, [facility] [address] [place] [address] [facility] [address] [place] [address] Vinted Other*[id number]; Other specified hypothyroidism Allergies No known active [...] TSH with reflex T4 placed. 12/18/2022: TSH 4/, T4 1.0. Ask-a-doc to Endocrinology placed with [...] should be assessed every trimester. Refer to [facility] if dosing adjustment is required after first trimester. 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 [...] Morgan CRNP [address] [place] [address] Pending Results Name Type Priority Associated Diagnoses Date /Time MYCODE INITIAL ADULT Lab Routine MyCode Research Other*[id number] 01/20/2023 10:42 AM EDT TSH WITH FREE T4 IF INDICATED Lab Routine Other specified hypothyroidism 01/20/2023 10:42 AM EDT MYCODE INITIAL ADULT-PINK Lab Routine [facility] Other*[id number] 01/20/2023 10:42 AM EDT MYCODE SST1 Lab Routine [facility] Other*[id number] 01/20/2023 10:42 AM EDT MYCODE SST2 Lab Routine [facility] Other*[id number] 01/20/2023 10:42 AM EDT Health Maintenance Due Date Last [...] this encounter Visit Diagnoses Diagnosis MyCode [facility] Other*[id number] Other specified hypothyroidism documented in this encounter
--- OUTSIDE RECORDS SUMMARY | 2023-06-04 12:49 | External Medical Summary ---
Author Name Unknown Address Unknown Organization [id number]:[phone] - [address] [place] [address] Laboratory Report Ordering Provider Test Date Status ANJALI NAQVI 12/18/2022 11:47:22 Final Observation Date Value Abnormality Reference (Units ) Status WBC, Total 12/18/2022 11:47:22 8.30 4.00-10.8 0 (K/uL) Final RBC 12/18/2022 11:47:22 4.04 3.85-5.15 (M/uL) Final Hemoglobin 12/18/2022 11:47:22 12.8 12.0-15.3 (g/dL) Final Anemia reflex testing trigge rs on a HGB < 12.0 for Females and HGB < 13.0 for Males in accordance with the WHO Anemia Guidelines
Anemia reflex testing triggers on a HGB < 12.0 for Females and HGB < 13.0 for Males in accordance with the WHO Anemia Guidelines HCT 12/18/2022 11:47:22 37.3 36.0-45.2 (%) Final MCV 12/18/2022 11:47:22 92.3 81.5-97.5 (fL) Final MCH 12/18/2022 11:47:22 31.7 27.0-34.0 (pg) Final MCHC 12/18/2022 11:47:22 34.3 32.0-36.0 (g/dL) Final RDW 12/18/2022 11:47:22 12.3 11.5-15.5 (%) Final Platelets 12/18/2022 11:47:22 195 140-400 (K /uL) Final MPV 12/18/2022 11:47:22 10.8 6.6-11.1 ( fL) Final Performing Location LAB[facility]ATORY [phone] - [address] [place] [address]
--- OUTSIDE RECORDS SUMMARY | 2023-06-04 12:49 | External Medical Summary | Summary of Care ---
Author Name Unknown Organization [facility] Address [address] [facility] [place] [address] Phone [phone] Care Team Providers Care Outreach Librarian Name Role Phone Unavailable Primary Care Provider Unavailabl e Encounter Details Date Type Department Care Team Description 12/21/2022 Telephone Gynecology/Obstetrics [facility] [address] [place] [address] Lisa Bermudez PA-C [address] [place] [address] Allergies No known active allergiesdocumented as of [...] should be assessed every trimester. Refer to [facility] if dosing adjustment is required after first trimester. 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 [...] Morgan CRNP [address] [place] [address] Health Maintenance Due Date Last Done Comments [...]
--- OUTSIDE RECORDS SUMMARY | 2023-06-04 12:49 | External Medical Summary ---
Author Name Unknown Address Unknown Organization [id number]:LAB[facility]ATORY [facility] - [address] [facility] [address] Laboratory Report Ordering Provider Test Date Status ANJALI NAQVI 12/18/2022 11:47:22 Final Observation Date Value Abnormality Reference (Units ) Status TSH 12/18/2022 11:47:22 4.27 Above high normal 0. 27-4.20 (uIU/mL) Final Performing Location LABORATORY [facility] - [address] [facility] [address]
--- OUTSIDE RECORDS SUMMARY | 2023-06-04 12:49 | External Medical Summary ---
Author Name Unknown Address Unknown Organization K01:[facility] - [address] [place] [address] Laboratory Report Ordering Provider Test Date Status ANJALI NAQVI 12/18/2022 11:47:22 Final Observation Date Value Abnormality Reference (Units ) Status T4, Free 12/18/2022 11:47:22 1.0 0.9-1.7 (n g/dL) Final Performing Location LABORATORY [facility] - [address] [place] [address]
--- OUTSIDE RECORDS SUMMARY | 2023-06-04 12:49 | External Medical Summary ---
Author Name Unknown Address Unknown Organization K01:LABORATORY [facility] - [address] [place] [address] Laboratory Report Ordering Provider Test Date Status ANJALI NAQVI 12/18/2022 11:47:22 Final Observation Date Value Abnormality Reference (Units ) Status ABO 12/18/2022 11:47:22 AB Final RH 12/18/2022 11:47:22 Positive Final RED BLOOD CELL ANTIBODY SCREEN 12/18/2022 11:47:22 Negative Final SPECIMEN EXPIRATION DATE 12/18/2022 11:47:22 12/21/2022 23:59 Final Performing Location LABORATORY [facility] - [address] [place] [address]
--- OUTSIDE RECORDS SUMMARY | 2023-06-04 12:49 | External Medical Summary ---
Author Name Unknown Address Unknown Organization K01:LABORATORY [facility] - [facility] [address] [place] [address] Laboratory Report Ordering Provider Test Date Status BELLA ROBERTS 03/18/2023 14:57:17 Final Observation Date Value Abnormality Reference (Units ) Status Creatinine 03/18/2023 14:57:17 0.5 0.5-1.0 (mg/dL) Final Glomerular filtration rate/1.73 sq M.predicted [Volume Rate/Area] in Serum, Plasma or Blood by Creatinine-based formula (CKD-EPI) 03/18/2023 14:57:17 >90 >=60 (mL/min) Final eGFR is calculated based on the CKD-EPI 2020 equation Performing Location LABORATORY [facility] - [facility] [address] [place] [address]
--- OUTSIDE RECORDS SUMMARY | 2023-06-04 12:49 | External Medical Summary | Summary of Care ---
Author Name Unknown Organization [facility] Address [address] [facility] [address] Phone [phone] Care Team Providers Care Project Crew Worker Name Role Phone Unavailable Primary Care Provider Unavailabl e Reason for Visit * Reason Comments Return Visit Encounter Details Date Type Department Care Team Description 02/16/2023 Office Visit Gynecology/Obstetric s Jeaneth Chan [address] [place] [address] Flori Morgan CRNP [address] [place] [address] Multigravida of advanced maternal age in second [...] normal first 02/14/2016 04/07/2016 Overview: 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
--- OUTSIDE RECORDS SUMMARY | 2023-06-04 12:49 | External Medical Summary ---
Author Name Unknown Address Unknown Organization K01:[facility] - [address] [place] [address] Laboratory Report Ordering Provider Test Date Status ANJALI NAQVI 12/18/2022 11:47:22 Final Observation Date Value Abnormality Reference (Units ) Status Hep C Ab 12/18/2022 11:47:22 Negative Negative Final Further HCV quantitative salima ting not performed per protocol. Performing Location LABORATORY [facility] - [address] [place] [address]
--- OUTSIDE RECORDS SUMMARY | 2023-06-04 12:50 | External Medical Summary | Summary of Care ---
Author Name Unknown Organization [facility] Address [address] [facility] [place] [address] Phone [phone] Care Team Providers Care Pattern Storage Clerk Name Role Phone Unavailable Primary Care Provider Unavailabl e Encounter Details Date Type Department Care Team Description 12/10/2022 Nurse Only Gynecology/Obstetrics [facility] [address] [place] [address] Gw, Nurse Intranet Developer [facility] [address] [facility] [place] [address] Allergies No known active allergiesdocumented as of this encounter (statuses as of 12/10/2022) Medications Medication Sig Dispensed Refills Start Date End Date Status 1 30-0.975-200 MG Oral Capsule Take 1 Cap by mouth daily. 0 Active Multi-Day Oral Tablet Take 1 Tab by mouth daily. 0 Active Blisovi 24 Fe 1-20 MG-MCG(24) Oral Tablet (hnnltlxg-fri-zzx estrad-fe) Take 1 Tablet by mouth in the morning. 84 Tablet 4 09/03/2022 12/10/2022 Discontinued( Medication List Clean Up) documented as of this encounter (statuses as of 12/10/2022) Active Problems Problem Noted Date AMA (advanced maternal age) multigravida 35+ 03/27/2020 Overview: Declined FTS Baby Asprin daily recommended Supervision of other normal Overview: Goes by "Storm". 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 08/17/2016 Tdap Vaccine administered per clinic protocol. Pt given VIS(vaccine information sheet) Zenia Álvarez RN documented as of this encounter (statuses as of 12/10/2022) Immunizations Name Administration Dates Next Due Seasonal Influenza, Quadriva lent, No Preserve, 6 Mons & Above, IM 03/27/2020 TDAP (age 10 and older)(Boostrix) 08/01/2020, documented as of this encounter Social History Tobacco Use Types Packs/Day Years Used Date Smoking Tobacco: Never Smokeless Tobacco: Never Alcohol Use Standard Drinks/Week Comments No 0 (1 standard drink = 0.6 oz pur e alcohol) social Comments Yes Sex Assigned at Date Recorded Not on file Job Start Date Occupation Industry Not on file Not on file Not on file documented as of this encounter Nursing Notes * Kathleen Willoughby LPN - 12/10/2022 8:44 AM EDT No transferred records. Patient had positive test 2 weeks ago Patient oriented to department and current providers in the practice. Patient aware Dr. Murillo covers occasionally for our practice. Reviewed frequency of visits. Reviewed outreach clinics and how to contact providers during regular office time and after office hours. Educational packet reviewed [facility] information given. Patient advised not to use [facility] for related problems . Does the patient have an advance directive? No, Advance Directive brochure offered, patient declined. Pt unsure of LMP Beta's were obtained pt quit taking BCP 2 weeks ago when she had a positive UPT. documented in this encounter Plan of Treatment Upcoming Encounters Date Type Specialty Care Team Description 12/18/2022 Imaging Radiology 12/18/2022 Office Visit Gynecology Obstetrics Lisa Bermudez PA-C [address] [place] [address] Health Maintenance Due Date Last Done Comments COVID-19 Vaccine (#1) 1985 Depression Screening, Annual [...] as of this encounter Visit Diagnoses Diagnosis Early stage of - Primary documented in this encounter
--- OUTSIDE RECORDS SUMMARY | 2023-06-04 12:50 | External Medical Summary ---
Author Name Unknown Address Unknown Organization K01:LABORATORY [place] [address] Laboratory Report Ordering Provider Test Date Status ANJALI NAQVI 12/18/2022 11:38:00 Final Observation Date Value Abnormality Reference (Units ) Status Human papilloma virus E6+E7 mRNA [Presence] in Cervix by [facility] with probe detection 12/18/2022 11:38:00 Negative Not Applicable Final No high/intermediate-risk Hu man Papillomavirus (HPV E6/E7 messenger RNA) detected by nucleic acid amplification.

This assay looks for high/intermediate risk Human Papillomavirus (HPV E6/E7 messenger RNA) by nucleic acid amplification. This assay includes the qualitative detection of HPV types 16,18,31,33,35,39,45,51,52,56,58,59,66 and 68 from cervical specimens.
This assay has been FDA cleared for Thin prep collection vials.
This assay has not been approved for use as a primary screening test for HPV and should be tested in conjunction with a PAP screen.
If collected utilizing a Surepath vial, the collection and specimen preparation of this test was developed, and its performance characteristics determined by [employer]. It has not been cleared or approved by the U.S. Food and Drug Administration (FDA). The FDA has determined that such clearance or approval is not necessary.
This assay has been performed at [facility], [address] [place] [address], [place]. [address]. Performing Location LABORATORY [address] [address]
--- OUTSIDE RECORDS SUMMARY | 2023-06-04 12:50 | External Medical Summary ---
Author Name Unknown Address Unknown Organization K01:[facility] [place] [address] [place] [address] Laboratory Report Ordering Provider Test Date Status ANJALI NAQVI 12/18/2022 11:38:39 Final Observation Date Value Abnormality Reference (Units ) Status Chlamydia trachomatis rRNA [Presence] in Specimen by [facility] with probe detection 12/18/2022 11:38:39 Negative Negative Final No Chlamydia trachomatis det ected by telecommunications line installer-mediated nucleic acid amplification. Neisseria gonorrhoeae rRNA [ Presence] in Unspecified specimen by [facility] with probe detection 12/18/2022 11:38:39 Negative Negative Final No Neisseria gonorrhoeae det ected by telecommunications line installer-mediated nucleic acid amplification. Performing Location [facility] [place] [address] [place] [address]
--- OUTSIDE RECORDS SUMMARY | 2023-06-04 12:50 | External Medical Summary ---
Author Name Unknown Address Unknown Organization K01:LABORATORY [address] [facility] [address] Laboratory Report Ordering Provider Test Date Status ANJALI NAQVI 12/18/2022 11:47:22 Final Observation Date Value Abnormality Reference (Units ) Status HIV 1+2 Ab+HIV1 p24 Ag [Presence] in Serum or Plasma by Immunoassay 12/18/2022 11:47:22 Negative Negative Final Negative HIV-1/2 antigen and antibody screening tset results usually indicate the absence of HIV-1 and HIV-2 infection. However, such negative results do not rule-out acute HIV infection. If acute HIV-1 infection is highly suspected, it is recommended that a specimen be submitted for detection of HIV-1 RNA. Performing Location [facility] [address] [facility] [address]
--- NOTE | 2023-06-05 00:34 | Obstetrical Progress Note ---
Date of Service June 05, 2023 Assessment & Plan Admission and Anticipated Discharge Date Admission Date: June 03, 2023 Subjective Patient is seen and examined. She feels well, no complaints. Ambulating without dizziness Voiding without difficulty Tolerating regular diet with out N&V Bleeding is minimal No fever/ chills/ CP/ SOB/ N&V/ Leg pain Breast feeding without problems Vital Signs Temp Pulse Resp BP Pulse Ox O2 Del Method 06/04/23 23:15 Room Air 06/04/23 22:53 36.4 C L 63 18 115/79 97 Room Air 06/04/23 19:30 36.5 C 67 16 112/71 98 Room Air 06/04/23 16:10 Room Air 06/04/23 16:10 36.4 C L 71 18 110/73 98 Room Air 06/04/23 13:20 36.8 C 71 18 112/71 97 Room Air Lab Results 06/03/23 Range/Units 23:42 WBC 9.49 (4.8-10.8) K/ul RBC 3.99 L (4.20-5.40) M/uL Hgb 11.7 L (12.0-16.0) g/dl Hct 35.0 L (37.0-47.0) % MCV 87.7 (80.0-100.0) fL MCH 29.3 (25.0-34.0) pg MCHC 33.4 (32.0-36.0) g/dL RDW Std Deviation 41.7 (36.4-46.3) fL RDW Coeff of Kristal 13.1 (11.5-14.5) % Plt Count 206 (130-400) K/uL MPV 10.7 (9.4-12.4) fL PE: General: Alert, orientedx3, NAD Abd: soft, NT, fundus firm, below Umbilicus Perineum intact, Lochia rubra minimal Ext; NT, no edema AP: 38 yo s/p , ppd# 1 VSS Afebrile doing well Continue routine care Desires d/c o All questions were answered D/C home after breakast, f/u in office Results & Data Vital Signs (Past 12 Hours) Vital Signs Temp Pulse Resp BP Pulse Ox O2 Del Method 06/04/23 23:15 Room Air 06/04/23 22:53 36.4 C L 63 18 115/79 97 Room Air 06/04/23 19:30 36.5 C 67 16 112/71 98 Room Air 06/04/23 16:10 Room Air 06/04/23 16:10 36.4 C L 71 18 110/73 98 Room Air 06/04/23 13:20 36.8 C 71 18 112/71 97 Room Air
[2023-06-05] MEDS ORDERED: LEVOTHYROXINE SODIUM 50 MCG TABLET PO SCH (06:30)
[2023-06-05 06:41] LABS: Hematocrit (blood only) 31.1 % (37.0-47.0); Hemoglobin 10.7 g/dl (12.0-16.0); Mean Corpuscular Hemoglobin 29.9 pg (25.0-34.0); Mean Corpuscular Hgb Conc 34.4 g/dL (32.0-36.0); Mean Corpuscular Volume 86.9 fL (80.0-100.0); Mean Platelet Volume 10.8 fL (9.4-12.4); Platelet Count 180 K/uL (130-400); RDW Coefficient of Variation 13.3 % (11.5-14.5); Red Blood Count 3.58 M/uL (4.20-5.40)
[2023-06-05] MEDS: FERROUS SULFATE 325 MG TAB PO SCH (07:47)
[2023-06-05] MEDS: PRENATAL VITAMIN 1 TAB PO SCH (07:47)
[2023-06-05] MEDS: DOCUSATE SODIUM 100 MG CAP PO SCH (07:47)
[2023-06-05] MEDS ORDERED: bisacodyL 5 MG TABEC PO SCH (20:00)
== END 2023-06-05 09:59 | disposition home health service (06) | DRG 807 ==
LOC: OPB 23:05 → 4S1 23:11 → 4E2 06-04 09:40